=== PATIENT | male | born 1970 ===

== ENCOUNTER 2024-06-15 19:37 | Inpatient (IN) | payer OTHER, SELFPAY ==
--- NOTE | 2024-06-15 19:51 | ED.PSYCH ---
HPI - Psych General Chief Complaint: Psychiatric Symptoms Stated Complaint: Crisis Time Seen by Provider: 06/15/24 20:08 Source: patient Limitations: no limitations History of Present Illness HPI Narrative: 54-year-old male who has a history of anxiety, depression, polysubstance use, presents for evaluation of suicidal ideation. Patient states that he is currently homeless, recently lost the car that he was sleeping in, and is feeling increasing the depressed. Patient states ?I just want to end it all, Stefania lived 54 years, I think I have lived long enough?. He denies any specific plan. He denies any homicidal ideation. No auditory or visual hallucinations. Patient smokes tobacco, drinks occasional alcohol use in admits to a small amount earlier today. He also admits to cocaine use. He denies any other illicit drug abuse. He is currently on Suboxone which he takes regularly. He has no physical complaints at this time. He did report that due to the combination of increased stress he felt heaviness on his chest. He denies any chest pain at this time. Related Data Home Medications ?Medication ?Instructions ?Recorded ?Confirmed acamprosate 333 mg tablet,delayed 333 mg PO TID 06/15/24 06/15/24 release buprenorphine 12 mg-naloxone 3 mg 1 film buccal Q24H 06/15/24 06/15/24 sublingual film (Suboxone) clonazepam 1 mg tablet 1 mg PO TID PRN Anxiety 06/15/24 06/15/24 escitalopram oxalate 5 mg tablet 5 mg PO DAILY 06/15/24 06/15/24 hydroxyzine HCl 50 mg tablet 50 mg PO BEDTIME PRN Insomnia 06/15/24 06/15/24 tamsulosin 0.4 mg capsule 0.4 mg PO DAILY 06/15/24 06/15/24 Allergies Allergy/AdvReac Type Severity Reaction Status Date / Time No Known Allergies Allergy Verified 06/15/24 19:57 Review of Systems Constitutional: Constitutional: Denies chills and Denies fever(s) Cardiovascular: Cardiovascular: Denies chest pain (resolved), Denies palpitations, Denies dyspnea, Denies dyspnea on exertion and Denies orthopnea Respiratory: Respiratory: Denies cough, Denies dyspnea and Denies dyspnea on exertion Gastrointestinal: Gastrointestinal: Denies abdominal pain, Denies melena, Denies hematochezia, Denies diarrhea, Denies nausea and Denies vomiting Neurologic: Denies focal weakness Endocrine: Endocrine: Denies palpitations [facility] Past Medical History Attestation statement: The following information was validated with the patient. [facility] Narrative: Depression Polysubstance use Anxiety Social History Social History Smoked in Last 30 Days: No Use of substances other than those prescribed or required for medical reasons: Yes Substance Use Type: Crack/Cocaine and Other Substance Use Type Other:: benzos Substance Use Frequency: Chronic Longstanding Advance Directives: No Advance Directives Information Provided: No Do you have a plan to hurt others: No Plan Physical Exam Vital Signs: Vital Signs: Last Vital Signs Temp 98.2 F 06/16/24 06:27 Pulse 50 06/16/24 06:27 Resp 16 06/15/24 19:54 BP 94/56 L 06/16/24 06:27 Pulse Ox 97 06/16/24 06:27 O2 Del Method Room Air 06/16/24 06:27 BMI result Body Mass Index 27.1 Const: General: no acute distress, alert and awake Resp: Auscultation: clear to auscultation bilaterally Cardio: Rate: regular rate Rhythm: regular rhythm Psych: Attitude: cooperative Thought content: Suicidality present and no homicidality Course Course Course Narrative: This is a Rapid Medical Exam performed in triage by Amanda Coyle PA-C. Full HPI, ROS and PE to be performed by primary ED provider. 54-year-old male presenting to the ED c/o Im scared Im going to hurt myself Denies plan. denies HI. Admits to using ETOH last drink this morning, drinks 1/2 pint daily, +hx ETOH withdrawal. Also uses cocaine, 1gm daily, last used this AM. reports CP at present, started this AM. PE: nontoxic appearing, ambulating w/steady gait Plan: EKG, Labs, Tox, CARE Reevaluation(s) Reevaluation #1: June 15, 2024, 9:35 p.m. patient seen and evaluated by the care team. He will be placed on a section 12 and bed search initiated. Patient remains on direct observation. Signed out in stable condition. Reevaluation #2: DR. Rizzo's progress note: No events reported by nursing overnight, VSS no symptoms overnight, care team input is appreciated, patient is under section 12, bed search is underway, continue with physician observation. Time: 07:18 Medical Decision Making Medical Decision Making [facility] Narrative: 54-year-old male with history of depression, anxiety and polysubstance use, presents for evaluation of suicidal ideation. Patient will be evaluated by the behavioral health team. He did allude to chest pain earlier which has since resolved. EKG is unremarkable. Labs pending. Patient remains on direct observation Differential Diagnosis Differential Diagnoses: The differential diagnosis associated with the presentation includes Depression PTSD Psychosis Anxiety Polysubstance use Lab Data [facility] Lab Attestation statement: I reviewed the patient's lab results. 06/15/24 20:09 06/15/24 20:09 Labs: Lab Results 06/15/24 06/15/24 Range/Units 20:09 20:39 WBC 10.3 (4.8-10.8) X10*3/uL RBC 4.46 L (4.60-5.80) X10*6/uL Hgb 14.6 (14.0-18.0) g/dl Hct 41.8 L (42.0-52.0) % MCV 93.7 (80.0-98.0) fL MCH 32.7 (27.0-33.0) pg MCHC 34.9 (31.0-36.0) g/dl RDW 13.4 (11.0-16.0) % Plt Count 240 (160-400) X10*3/uL MPV 9.6 (9.4-12.4) fL Immature Gran % (Auto) 0.3 (0.0-0.4) % Neut % (Auto) 54.0 (45-73) % Lymph % (Auto) 34.1 (20-40) % [place] % (Auto) 7.5 (2-11) % Eos % (Auto) 3.5 (0-4) % Baso % (Auto) 0.6 (0-2) % Lymph # (Auto) 3.5 (1.2-4.9) X10*3/uL [place] # (Auto) 0.8 (0.1-1.2) X10*3/uL Eos # (Auto) 0.4 (0.0-0.4) X10*3/uL Baso # (Auto) 0.1 (0.0-0.2) X10*3/uL Abs Immat Gran (auto) 0.03 (0.00-0.03) X10*3/uL Absolute Neuts (auto) 5.6 (2.0-8.3) x10*3/uL Absolute Nucleated RBC 0.000 (0.0-0.012) X10*3/uL Nucleated RBC % (auto) 0.0 (0.0-0.2) /100WBC Sodium 141 (135-145) mmol/L Potassium 4.6 (3.3-5.1) mmol/L Chloride 104 (96-108) mmol/L Carbon Dioxide 30 H (22-29) mmol/L Anion Gap 12 (12-20) BUN 24 H (9-16) mg/dL Creatinine 1.07 (0.5-1.4) mg/dL Estim Creat Clear Calc 78.9 Estimated GFR > 60 Random Glucose 117 H (60-115) mg/dL Calcium 9.1 (8.4-10.2) mg/dL Total Bilirubin 0.7 (0.0-1.0) mg/dL Direct Bilirubin 0.3 (0.0-0.5) mg/dL AST 41 H (5-37) U/L ALT 35 (0-40) U/L Alkaline Phosphatase 93 (39-117) U/L Troponin I High Sens < 2.7 (<3.5-35.0) ng/L Total Protein 8.9 H (6.5-8.0) g/dL Albumin 3.9 (3.5-5.0) g/dL Urine Color Dark Yellow Urine Appearance Clear Urine pH 6.0 (5.0-9.0) Ur Specific [place] >= 1.030 H (1.005-1.025) Urine Protein 30 (1+) H (Neg-Trace) mg/dL Urine Glucose (UA) Negative (Negative) mg/dL Urine Ketones Trace (Negative) mg/dL Urine Blood Negative (Negative) Urine Nitrite Negative (Negative) Ur Leukocyte Esterase Negative (Negative) Urine RBC 0-2 (0-2) /HPF Urine WBC 0-5 (0-5) /HPF Ur Squamous Epith Cells 0-2 (0-2) /HPF Urine Bacteria None Seen (None Seen) Hyaline Casts 0-2 (0-2) /LPF Salicylates < 5.0 L (15-30) mg/dL Urine Opiates Screen Not Detected (Not Detect) Ur Buprenorphine Scrn Positive H (Not Detect) ng/mL Ur Oxycodone Screen Not Detected (Not Detect) ng/mL Urine Methadone Screen Not Detected (Not Detect) ng/mL Urine Fentanyl Screen Not Detected (Not Detect) Acetaminophen < 3 (<30) mcg/mL Ur Barbiturates Screen Not Detected (Not Detect) Ur Phencyclidine Scrn Not Detected (Not Detect) Ur Amphetamines Screen Not Detected (Not Detect) U Benzodiazepines Scrn POSITIVE H (Not Detect) Urine Cocaine Screen POSITIVE H (Not Detect) U Marijuana (THC) Screen Not Detected (Not Detect) Ethyl Alcohol < 10 mg/dL Independent Interpretation I performed an independent interpretation of an: EKG (Sinus bradycardia 51 beats per minute without any acute ischemic changes.) Social Determinants Patient?s care significantly limited by Social Determinants of Health including: Inadequate housing, Low income, Alcoholism and drug addiction in family, Problems related to primary support group, Unemployment and Other Social Determinant of Health Discharge Plan Discharge Clinical Impression: Depression Patient Disposition: Still a Patient Prescriptions: No Action tamsulosin 0.4 mg Capsule 0.4 mg PO DAILY buprenorphine-naloxone [Suboxone] 12-3 mg Film 1 film BUCCAL Q24H clonazepam 1 mg Tablet 1 mg PO TID PRN (Reason: Anxiety) escitalopram oxalate 5 mg Tablet 5 mg PO DAILY hydroxyzine HCl 50 mg Tablet 50 mg PO BEDTIME PRN (Reason: Insomnia) acamprosate 333 mg Tablet,Delayed Release (Dr/Ec) 333 mg PO TID Rx Instructions: administer with mid-day and evening meals Interventions: [place]-Suicide Risk Severity Scale Last Done: 06/16/24 04:38 Print Language: Mosotho
[2024-06-15 19:54] VITALS: BP 132/77; PULSE 60; RESP 16; TEMP 36.5; O2SAT 98; BMI 27.1
--- NOTE | 2024-06-15 19:56 | ECG_ITS ---
Test Reason : CHEST PAIN Blood Pressure : / mmHG Vent. Rate : 051 BPM Atrial Rate : 051 BPM P-R Int : 144 ms QRS Dur : 086 ms QT Int : 434 ms P-R-T Axes : -78 -34 010 degrees QTc Int : 400 ms Unusual P axis, possible ectopic atrial bradycardia Left axis deviation Abnormal ECG No previous ECGs available Referred By: Amanda Coyle Electronically Signed By:MARIANNA BOLANOS
[2024-06-15 20:14] LABS: MANUAL DIFF FLAG NO
[2024-06-15 20:15] LABS: Basophils Absolute Auto 0.1 X10*3/uL (0.0-0.2); Basophils Percent Auto 0.6 % (0-2); Eosinophils Absolute Auto 0.4 X10*3/uL (0.0-0.4); Eosinophils Percent Auto 3.5 % (0-4); Hematocrit 41.8 % (42.0-52.0); Hemoglobin 14.6 g/dl (14.0-18.0); Imm Gran Abs Auto 0.03 X10*3/uL (0.00-0.03); Imm Gran Pct Auto 0.3 % (0.0-0.4); Lymphocytes Absolute Auto 3.5 X10*3/uL (1.2-4.9); Lymphocytes Percent Auto 34.1 % (20-40); Mean Corpuscular HGB Conc 34.9 g/dl (31.0-36.0); Mean Corpuscular Hemoglobin 32.7 pg (27.0-33.0); Mean Corpuscular Volume 93.7 fL (80.0-98.0); Mean Platelet Volume 9.6 fL (9.4-12.4); Monocytes Absolute Auto 0.8 X10*3/uL (0.1-1.2); Monocytes Percent Auto 7.5 % (2-11); Neutrophils Absolute Auto 5.6 x10*3/uL (2.0-8.3); Platelet Count 240 X10*3/uL (160-400); Red Blood Count 4.46 X10*6/uL (4.60-5.80); Red Cell Distribution Width 13.4 % (11.0-16.0); White Blood Count 10.3 X10*3/uL (4.8-10.8)
[2024-06-15 20:30] LABS: Alanine Aminotransferase 35 U/L (0-40); Albumin Level 3.9 g/dL (3.5-5.0); Alkaline Phosphatase 93 U/L (39-117); Anion Gap 12 (12-20); Aspartate Amino Transferase 41 U/L (5-37); Bilirubin Direct 0.3 mg/dL (0.0-0.5); Bilirubin Total 0.7 mg/dL (0.0-1.0); Blood Urea Nitrogen 24 mg/dL (9-16); Calcium 9.1 mg/dL (8.4-10.2); Carbon Dioxide 30 mmol/L (22-29); Chloride 104 mmol/L (96-108); Creatinine Clr Calc Pharmacy 78.9; Estimated Glomerular Filt Rate > 60; Ethanol < 10 mg/dL; Glucose Random 117 mg/dL (60-115); Potassium 4.6 mmol/L (3.3-5.1); Sodium 141 mmol/L (135-145); Total Protein 8.9 g/dL (6.5-8.0)
[2024-06-15 20:33] LABS: Acetaminophen LAB < 3 mcg/mL (<30); Salicylate < 5.0 mg/dL (15-30)
[2024-06-15 20:49] LABS: Appearance Urine Clear; Color Urine Dark Yellow; Glucose Urine UA Negative (Negative); Leukocyte Esterase Urine Negative (Negative); Nitrite Urine Negative (Negative); Specific Gravity - Urine >= 1.030 (1.005-1.025); UMIC TRIGGER UA YES; Urine Blood Negative (Negative); Urine Ketones Trace mg/dL (Negative); Urine Protein 30 (1+) mg/dL (Neg-Trace)
[2024-06-15 20:51] LABS: Bacteria Urine None Seen (None Seen); Hyaline Casts Urine 0-2 /LPF (0-2); RBC Urine 0-2 /HPF (0-2); Squamous Epithelial Cell Urine 0-2 /HPF (0-2); WBC Urine 0-5 /HPF (0-5)
[2024-06-15 21:00] LABS: Amphetamine Screen Urine Not Detected (Not Detect); Barbiturates, Urine Not Detected (Not Detect); Benzodiazepines Screen Urine POSITIVE (Not Detect); Buprenorphine Scr Positive (Not Detect); Cannabinoid Screen Urine Not Detected (Not Detect); Cocaine Screen Urine POSITIVE (Not Detect); Fentanyl, urine Not Detected (Not Detect); Methadone Screen, Urine Not Detected (Not Detect); Opiate Screen Urine Not Detected (Not Detect); Oxycodone Screen Urine Not Detected (Not Detect); Phencyclidine Screen Urine Not Detected (Not Detect)
[2024-06-15 21:03] LABS: Troponin-I High Sensitivity < 2.7 ng/L (<3.5-35.0)
--- NOTE | 2024-06-16 04:42 | PC.NURSE ---
Patient slept through the night, no distress observed/reported, med rec completed/pending provider's approval, disposition per care team is section 12 inpatient bed search, no behavior and safety issues, safety check maintained on 15 minutes, VSS, will continue to monitor
[2024-06-16 06:27] VITALS: BP 94/56; PULSE 50; TEMP 36.8; O2SAT 97
--- NOTE | 2024-06-16 06:48 | PC.NURSE ---
Assumed care of patient at 0645, patient appears to be in no apparent distress this am, sitting up in chair eating breakfast, offers no complaints to this RN. Continue plan of care for inpatient bedsearch
[2024-06-16 12:05] VITALS: BP 109/58; PULSE 83; RESP 18; TEMP 36.4; O2SAT 96
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
[2024-06-16 12:42] VITALS: BMI 25.6
[2024-06-16] MEDS: Acamprosate Calcium 333 MG TABLET.DR PO ×2 (13:41→22:22)
[2024-06-16] MEDS: Tamsulosin HCL 0.4 MG CAPSULE PO (13:41)
[2024-06-16] MEDS: Buprenorphine/Naloxone 8/2 mg FILM 1 FILM BUCCAL ×2 (13:41→22:22)
[2024-06-16] MEDS: clonazePAM 0.5 MG TABLET PO (13:41)
[2024-06-16] MEDS: Baclofen 10 MG TABLET PO (13:41)
[2024-06-16] MEDS: Nicotine Polacrilex 2 MG GUM 4 MG BUCCAL ×2 (14:04→20:48)
[2024-06-16] MEDS: Escitalopram Oxalate 10 MG TABLET PO (14:04)
[2024-06-16] MEDS: Nicotine 21 MG PATCH.TD24 TRANSDERMA (15:24)
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
[2024-06-16 20:00] VITALS: BP 112/65; PULSE 60; RESP 16; TEMP 36.9; O2SAT 95
[2024-06-16] MEDS: clonazePAM 1 MG TABLET PO (22:22)
[2024-06-16] MEDS: Acetaminophen 325 MG TABLET 650 MG PO (22:22)
[2024-06-17 08:00] VITALS: BP 99/58; PULSE 55; RESP 18; TEMP 36.9; O2SAT 96
--- NOTE | 2024-06-17 08:50 | P.PNPSI_ITS ---
Subjective Subjective Date of Service: 06/17/24 Reason For Visit: Crisis Subjective Notes: Conditional Voluntary Interim History: Reviewed with Dr. Roberson. Active on unit, social with peers. attending groups. Pt reports feeling better than yesterday ; continues to report anxiety and depression. Pt stated, I'm not feeling hopeless today ; pt denies SI/HI/VH/AH. He reports some nightmares but improved from days prior. Medication Compliance: Yes Side effects from medications: No Attending Groups: Yes Review of Systems Constitutional: Reports as per HPI Eyes: Reports as per HPI Reports as per HPI Cardiovascular: Reports as per HPI Respiratory: Reports as per HPI Gastrointestinal: Reports as per HPI Genitourinary: Reports as per HPI Musculoskeletal: Reports as per HPI Skin/Breast: Reports as per HPI Reports as per HPI Psychiatric: Reports as per HPI Endocrine: Reports as per HPI Hematologic/Lymphatic: Reports as per HPI Allergic/Immunologic: Reports as per HPI Mental Status Exam Mental Status Exam Narrative: Pt is alert and oriented; behavior is cooperative and calm; dressed in casual attire; mood is described as depressed and anxious ; eye contact appropriate; Speech is normal rate, volume and not pressured; thought process is organized and goal directed; Thought content is on tx; denies SI/HI/VH/AH. Diagnostics Vital Signs (24Hr): Vital Signs - 24 hr 06/16/24 12:05 06/16/24 20:00 06/17/24 08:00 Temperature 97.6 F 98.4 F 98.4 F Pulse Rate 83 60 55 Respiratory Rate 18 16 18 Blood Pressure 109/58 L 112/65 99/58 L Pulse Oximetry 96 95 96 Oxygen Delivery Method Room Air Room Air Room Air BMI result Body Mass Index 25.6 Labs 06/15/24 20:09 06/17/24 08:21 Labs: Laboratory Results - last 48 hr 06/15/24 06/15/24 20:09 20:39 WBC 10.3 RBC 4.46 L Hgb 14.6 Hct 41.8 L MCV 93.7 MCH 32.7 MCHC 34.9 RDW 13.4 Plt Count 240 MPV 9.6 Immature Gran % (Auto) 0.3 Neut % (Auto) 54.0 Lymph % (Auto) 34.1 [place] % (Auto) 7.5 Eos % (Auto) 3.5 Baso % (Auto) 0.6 Lymph # (Auto) 3.5 [place] # (Auto) 0.8 Eos # (Auto) 0.4 Baso # (Auto) 0.1 Abs Immat Gran (auto) 0.03 Absolute Neuts (auto) 5.6 Absolute Nucleated RBC 0.000 Nucleated RBC % (auto) 0.0 Sodium 141 Potassium 4.6 Chloride 104 Carbon Dioxide 30 H Anion Gap 12 BUN 24 H Creatinine 1.07 Estim Creat Clear Calc 78.9 Estimated GFR > 60 Random Glucose 117 H Calcium 9.1 Total Bilirubin 0.7 Direct Bilirubin 0.3 AST 41 H ALT 35 Alkaline Phosphatase 93 Troponin I High Sens < 2.7 Total Protein 8.9 H Albumin 3.9 Urine Color Dark Yellow Urine Appearance Clear Urine pH 6.0 Ur Specific [place] >= 1.030 H Urine Protein 30 (1+) H Urine Glucose (UA) Negative Urine Ketones Trace Urine Blood Negative Urine Nitrite Negative Ur Leukocyte Esterase Negative Urine RBC 0-2 Urine WBC 0-5 Ur Squamous Epith Cells 0-2 Urine Bacteria None Seen Hyaline Casts 0-2 Salicylates < 5.0 L Urine Opiates Screen Not Detected Ur Buprenorphine Scrn Positive H Ur Oxycodone Screen Not Detected Urine Methadone Screen Not Detected Urine Fentanyl Screen Not Detected Acetaminophen < 3 Ur Barbiturates Screen Not Detected Ur Phencyclidine Scrn Not Detected Ur Amphetamines Screen Not Detected U Benzodiazepines Scrn POSITIVE H Urine Cocaine Screen POSITIVE H U Marijuana (THC) Screen Not Detected Ethyl Alcohol < 10 Medications Medications Current Medications Acamprosate (Acamprosate Calcium 333 Mg Tablet.Dr) 333 mg PO TID [facility] Last Admin: 06/16/24 22:22 Dose: 333 mg Acetaminophen (Acetaminophen 325 Mg Tablet) 650 mg PO Q6H PRN PRN Reason: Headache/Pain Mild Scale (1-3) Last Admin: 06/16/24 22:22 Dose: 650 mg Al Hydroxide/Mg Hydroxide (Magnesium Hydrox/Alum Hydrox 30 Ml Oral.Susp) 30 ml PO Q6H PRN PRN Reason: Heartburn/Nausea Buprenorphine/Naloxone (Buprenorphine/Naloxone 8/2 Mg Film) 1 film BUCCAL TID [facility] Last Admin: 06/16/24 22:22 Dose: 1 film Clonazepam (Clonazepam 0.5 Mg Tablet) 0.5 mg PO BID@0800,1500 [facility] Last Admin: 06/16/24 13:41 Dose: 0.5 mg Clonazepam (Clonazepam 1 Mg Tablet) 1 mg PO BEDTIME [facility] Last Admin: 06/16/24 22:22 Dose: 1 mg Clonidine HCl (Clonidine Hcl 0.1 Mg Tablet) 0.1 mg PO TID PRN; Protocol PRN Reason: Anxiety Escitalopram Oxalate (Escitalopram Oxalate 10 Mg Tablet) 10 mg PO DAILY [facility] Last Admin: 06/16/24 14:04 Dose: 10 mg Hydroxyzine HCl (Hydroxyzine Hcl 25 Mg Tablet) 25 mg PO Q6H PRN PRN Reason: Anxiety Magnesium Hydroxide (Milk Of Magnesia 30 Ml Oral.Susp) 30 ml PO DAILY PRN PRN Reason: Constipation Nicotine (Nicotine 21 Mg Patch.Td24) 21 mg TRANSDERMA DAILY [facility] Nicotine Polacrilex (Nicotine Polacrilex 2 Mg Gum) 4 mg BUCCAL Q2H PRN PRN Reason: Nicotine Cravings Last Admin: 06/16/24 20:48 Dose: 4 mg Tamsulosin HCl (Tamsulosin Hcl 0.4 Mg Capsule) 0.4 mg PO DAILY [facility] Trazodone HCl (Trazodone Hcl 50 Mg Tablet) 50 mg PO BEDTIME MRX1 PRN PRN Reason: Insomnia Allergies Allergies Allergy/AdvReac Type Severity Reaction Status Date / Time No Known Allergies Allergy Verified 06/15/24 19:57 Assessment & Plan Assessment & Plan (1) MDD (major depressive disorder), recurrent episode: Status: Acute Code(s): F33.9 - Major depressive disorder, recurrent, unspecified (2) PTSD (post-traumatic stress disorder): Status: Acute Code(s): F43.10 - Post-traumatic stress disorder, unspecified (3) Cocaine use disorder: Status: Acute Code(s): F14.10 - Cocaine abuse, uncomplicated (4) Opioid use disorder: Status: Acute Code(s): F11.90 - Opioid use, unspecified, uncomplicated Plan Patient is a 54-year-old male with history of MDD, PTSD, cocaine use disorder, opiate use disorder, who self presented [place] [facility] due to suicidal ideation with plan to overdose on narcotics secondary to life stressors. Plan: CV 15 minute safety checks Increase lexapro to 10mg PO daily Decrease klonopin to 0.5mg PO BID and 1mg PO bedtime Start: Clonidine 0.1mg PO TID PRN referral to outpatient psychiatric providers encourage groups referral to substance abuse program discharge planning 06/17: Active on unit, social with peers. attending groups. Pt reports feeling better than yesterday ; continues to report anxiety and depression. Pt stated, I'm not feeling hopeless today ; pt denies SI/HI/VH/AH. He reports some nightmares but improved from days prior. Continue current tx plan. Patient educated on: diagnosis, medication risk/benefits and therapeutic strategies Informed Consent: understands Reason for continued inpatient stay Substantial Risk for: med/psych decompensation Time Spent With Patient Time: Total time managing care of this patient today _20___ minutes.
[2024-06-17 08:51] LABS: Alanine Aminotransferase 26 U/L (0-40); Albumin Level 3.2 g/dL (3.5-5.0); Alkaline Phosphatase 78 U/L (39-117); Anion Gap 10 (12-20); Aspartate Amino Transferase 32 U/L (5-37); Bilirubin Total 0.2 mg/dL (0.0-1.0); Blood Urea Nitrogen 16 mg/dL (9-16); Calcium 8.9 mg/dL (8.4-10.2); Carbon Dioxide 28 mmol/L (22-29); Chloride 107 mmol/L (96-108); Cholesterol 134 mg/dL (<200); Creatinine Clr Calc Pharmacy 92.7; Estimated Glomerular Filt Rate > 60; Glucose Fasting 111 mg/dL (60-99); HDL Cholesterol 37 mg/dL (>40); LDL Cholesterol Calculated 79 mg/dL (<100); Potassium 4.6 mmol/L (3.3-5.1); Sodium 140 mmol/L (135-145); Total Protein 7.3 g/dL (6.5-8.0); Triglycerides 90 mg/dL (<150)
[2024-06-17] MEDS: Acamprosate Calcium 333 MG TABLET.DR PO ×3 (08:52→21:22)
[2024-06-17] MEDS: Escitalopram Oxalate 10 MG TABLET PO (08:52)
[2024-06-17] MEDS: Buprenorphine/Naloxone 8/2 mg FILM 1 FILM BUCCAL ×3 (08:52→21:22)
[2024-06-17] MEDS: Nicotine 21 MG PATCH.TD24 TRANSDERMA (08:52)
[2024-06-17] MEDS: clonazePAM 0.5 MG TABLET PO ×2 (08:52→14:07)
[2024-06-17] MEDS: Tamsulosin HCL 0.4 MG CAPSULE PO (08:52)
[2024-06-17] MEDS: Acetaminophen 325 MG TABLET 650 MG PO ×2 (09:52→21:22)
[2024-06-17] MEDS: Nicotine Polacrilex 2 MG GUM 4 MG BUCCAL ×2 (09:58→18:10)
[2024-06-17 20:00] VITALS: BP 119/72; PULSE 64; RESP 16; TEMP 36.4; O2SAT 98
[2024-06-17] MEDS: clonazePAM 1 MG TABLET PO (21:22)
[2024-06-18 07:55] VITALS: BP 105/58; PULSE 51; RESP 16; TEMP 36.4; O2SAT 97
[2024-06-18] MEDS: Nicotine 21 MG PATCH.TD24 TRANSDERMA (09:05)
[2024-06-18] MEDS: Buprenorphine/Naloxone 8/2 mg FILM 1 FILM BUCCAL ×3 (09:05→20:34)
[2024-06-18] MEDS: Tamsulosin HCL 0.4 MG CAPSULE PO (09:05)
[2024-06-18] MEDS: clonazePAM 0.5 MG TABLET PO ×2 (09:05→15:38)
[2024-06-18] MEDS: Acamprosate Calcium 333 MG TABLET.DR PO ×3 (09:05→20:34)
[2024-06-18] MEDS: Escitalopram Oxalate 10 MG TABLET PO (09:05)
[2024-06-18] MEDS: Acetaminophen 325 MG TABLET 650 MG PO (09:42)
[2024-06-18] MEDS: Nicotine Polacrilex 2 MG GUM 4 MG BUCCAL ×2 (09:55→13:54)
--- NOTE | 2024-06-18 15:07 | HO.PSYCHPN ---
Subjective Subjective Date of Service: 06/18/24 Reason For Visit: Crisis Subjective Notes: Conditional Voluntary Interim History: Reviewed with Dr. Roberson. Pt reports feeling anxious d/t being away from his girlfriend. Pt stated, I'm grateful that I'm here because the life I'm living make me depressed . Pt is hoping he is accepted into the [facility]. denies SI/HI/VH/AH. Medication Compliance: Yes Side effects from medications: No Attending Groups: Yes Review of Systems Constitutional: Reports as per HPI Eyes: Reports as per HPI Reports as per HPI Cardiovascular: Reports as per HPI Respiratory: Reports as per HPI Gastrointestinal: Reports as per HPI Genitourinary: Reports as per HPI Musculoskeletal: Reports as per HPI Skin/Breast: Reports as per HPI Reports as per HPI Psychiatric: Reports as per HPI Endocrine: Reports as per HPI Hematologic/Lymphatic: Reports as per HPI Allergic/Immunologic: Reports as per HPI Mental Status Exam Mental Status Exam Narrative: Pt is alert and oriented; behavior is cooperative and calm; dressed in casual attire; mood is described as depressed and anxious ; eye contact appropriate; Speech is normal rate, volume and not pressured; thought process is organized and goal directed; Thought content is on tx; denies SI/HI/VH/AH. Diagnostics Vital Signs (24Hr): Vital Signs - 24 hr 06/17/24 20:00 06/18/24 07:55 Temperature 97.6 F 97.5 F Pulse Rate 64 51 Respiratory Rate 16 16 Blood Pressure 119/72 105/58 L Pulse Oximetry 98 97 Oxygen Delivery Method Room Air Room Air BMI result Body Mass Index 25.6 Labs 06/15/24 20:09 06/17/24 08:21 Labs: Laboratory Results - last 48 hr 06/17/24 08:21 Sodium 140 Potassium 4.6 Chloride 107 Carbon Dioxide 28 Anion Gap 10 L BUN 16 Creatinine 0.91 Estim Creat Clear Calc 92.7 Estimated GFR > 60 Fasting Glucose 111 H Calcium 8.9 Total Bilirubin 0.2 AST 32 ALT 26 Alkaline Phosphatase 78 Total Protein 7.3 Albumin 3.2 L Triglycerides 90 Cholesterol 134 LDL Cholesterol, Calc 79 HDL Cholesterol 37 L Medications Medications Current Medications Acamprosate (Acamprosate Calcium 333 Mg Tablet.) 333 mg PO TID [facility] Last Admin: 06/18/24 09:05 Dose: 333 mg Acetaminophen (Acetaminophen 325 Mg Tablet) 650 mg PO Q6H PRN PRN Reason: Headache/Pain Mild Scale (1-3) Last Admin: 06/18/24 09:42 Dose: 650 mg Al Hydroxide/Mg Hydroxide (Magnesium Hydrox/Alum Hydrox 30 Ml Oral.Susp) 30 ml PO Q6H PRN PRN Reason: Heartburn/Nausea Buprenorphine/Naloxone (Buprenorphine/Naloxone 8/2 Mg Film) 1 film BUCCAL TID [facility] Last Admin: 06/18/24 09:05 Dose: 1 film Clonazepam (Clonazepam 0.5 Mg Tablet) 0.5 mg PO BID@0800,1500 [facility] Last Admin: 06/18/24 09:05 Dose: 0.5 mg Clonazepam (Clonazepam 1 Mg Tablet) 1 mg PO BEDTIME [facility] Last Admin: 06/17/24 21:22 Dose: 1 mg Clonidine HCl (Clonidine Hcl 0.1 Mg Tablet) 0.1 mg PO TID PRN; Protocol PRN Reason: Anxiety Escitalopram Oxalate (Escitalopram Oxalate 10 Mg Tablet) 10 mg PO DAILY [facility] Last Admin: 06/18/24 09:05 Dose: 10 mg Hydroxyzine HCl (Hydroxyzine Hcl 25 Mg Tablet) 25 mg PO Q6H PRN PRN Reason: Anxiety Magnesium Hydroxide (Milk Of Magnesia 30 Ml Oral.Susp) 30 ml PO DAILY PRN PRN Reason: Constipation Nicotine (Nicotine 21 Mg Patch.Td24) 21 mg TRANSDERMA DAILY [facility] Last Admin: 06/18/24 09:05 Dose: 21 mg Nicotine Polacrilex (Nicotine Polacrilex 2 Mg Gum) 4 mg BUCCAL Q2H PRN PRN Reason: Nicotine Cravings Last Admin: 06/18/24 13:54 Dose: 4 mg Tamsulosin HCl (Tamsulosin Hcl 0.4 Mg Capsule) 0.4 mg PO DAILY [facility] Last Admin: 06/18/24 09:05 Dose: 0.4 mg Trazodone HCl (Trazodone Hcl 50 Mg Tablet) 50 mg PO BEDTIME MRX1 PRN PRN Reason: Insomnia Allergies Allergies Allergy/AdvReac Type Severity Reaction Status Date / Time No Known Allergies Allergy Verified 06/15/24 19:57 Assessment & Plan Assessment & Plan (1) MDD (major depressive disorder), recurrent episode: Status: Acute Code(s): F33.9 - Major depressive disorder, recurrent, unspecified (2) PTSD (post-traumatic stress disorder): Status: Acute Code(s): F43.10 - Post-traumatic stress disorder, unspecified (3) Cocaine use disorder: Status: Acute Code(s): F14.10 - Cocaine abuse, uncomplicated (4) Opioid use disorder: Status: Acute Code(s): F11.90 - Opioid use, unspecified, uncomplicated Plan Patient is a 54-year-old male with history of MDD, PTSD, cocaine use disorder, opiate use disorder, who self presented to [facility] due to suicidal ideation with plan to overdose on narcotics secondary to life stressors. Plan: CV 15 minute safety checks Increase lexapro to 10mg PO daily Decrease klonopin to 0.5mg PO BID and 1mg PO bedtime Start: Clonidine 0.1mg PO TID PRN referral to outpatient psychiatric providers encourage groups referral to substance abuse program discharge planning 06/17: Active on unit, social with peers. attending groups. Pt reports feeling better than yesterday ; continues to report anxiety and depression. Pt stated, I'm not feeling hopeless today ; pt denies SI/HI/VH/AH. He reports some nightmares but improved from days prior. Continue current tx plan. 06/18: Pt reports feeling anxious d/t being away from his girlfriend. Pt stated, I'm grateful that I'm here because the life I'm living make me depressed . Pt is hoping he is accepted into the [facility]. denies SI/HI/VH/AH. Continue current tx plan. Patient educated on: diagnosis, medication risk/benefits, substance abuse and therapeutic strategies Informed Consent: understands Reason for continued inpatient stay Substantial Risk for: med/psych decompensation Time Spent With Patient Time: Total time managing care of this patient today _20___ minutes.
[2024-06-18 19:40] VITALS: BP 113/71; PULSE 56; RESP 16; TEMP 36.6; O2SAT 98
[2024-06-18] MEDS: clonazePAM 1 MG TABLET PO (20:34)
[2024-06-18] MEDS: traZODone HCL 50 MG TABLET PO (20:58)
[2024-06-19 07:00] VITALS: BMI 27.8
[2024-06-19 07:44] VITALS: BP 98/56; PULSE 51; RESP 14; TEMP 36.8; O2SAT 95
[2024-06-19] MEDS: Nicotine 21 MG PATCH.TD24 TRANSDERMA (08:56)
[2024-06-19] MEDS: Buprenorphine/Naloxone 8/2 mg FILM 1 FILM BUCCAL ×3 (08:56→20:46)
[2024-06-19] MEDS: Escitalopram Oxalate 10 MG TABLET PO (08:57)
[2024-06-19] MEDS: Tamsulosin HCL 0.4 MG CAPSULE PO (08:57)
[2024-06-19] MEDS: Acamprosate Calcium 333 MG TABLET.DR PO ×3 (08:57→20:47)
[2024-06-19] MEDS: clonazePAM 0.5 MG TABLET PO (08:57)
[2024-06-19] MEDS: Nicotine Polacrilex 2 MG GUM 4 MG BUCCAL ×2 (09:00→14:32)
--- NOTE | 2024-06-19 10:35 | MHC.RECOVRN ---
AUDIT-C Brief Intervention Pt had positive screen for unhealthy alcohol use on admission, subsequently met with t/w to discuss alcohol use and recovery supports/options. Pt voices concern regarding alcohol use and is aware that drinking at unhealthy levels is known to increase risk of alcohol related health problems. Pt reports a A pint and a half of vodka and beer daily . Pt expresses how alcohol use has impacted health, including negative impact on work and family life. Discussed risk reduction strategies including drinking below the recommended limit. Provided pt with written resources including information on inpatient and outpatient treatment, BACILIO, harm reduction, and recovery coaching. Pt plans to return to the [facility] upon discharge. Pt provided with t/w contact information if questions or concerns arise. Denies other questions or concerns at this time.?
--- NOTE | 2024-06-19 13:15 | HO.PSYCHPN ---
Subjective Subjective Date of Service: 06/19/24 Reason For Visit: Crisis Subjective Notes: Conditional Voluntary Interim History: Reviewed with Dr. Roberson. Pt continues to report feeling anxious and depressed; pt stated, my mind feels blank today. I don't feel like myself. I'm just worried about different things . Pt reports sleeping well last night. Klonopin decreased to 0.5mg PO daily and 1mg PO bedtime. Switched clonidine 0.1mg PO TID from PRN to scheduled. Medication Compliance: Yes Side effects from medications: No Attending Groups: Yes Review of Systems Constitutional: Reports as per HPI Eyes: Reports as per HPI Reports as per HPI Cardiovascular: Reports as per HPI Respiratory: Reports as per HPI Gastrointestinal: Reports as per HPI Genitourinary: Reports as per HPI Musculoskeletal: Reports as per HPI Skin/Breast: Reports as per HPI Reports as per HPI Psychiatric: Reports as per HPI Endocrine: Reports as per HPI Hematologic/Lymphatic: Reports as per HPI Allergic/Immunologic: Reports as per HPI Mental Status Exam Mental Status Exam Narrative: Pt is alert and oriented; behavior is cooperative and calm; dressed in casual attire; mood is described as depressed and anxious ; eye contact appropriate; Speech is normal rate, volume and not pressured; thought process is organized and goal directed; Thought content is on tx; denies SI/HI/VH/AH. Diagnostics Vital Signs (24Hr): Vital Signs - 24 hr 06/18/24 19:40 06/19/24 07:44 Temperature 97.8 F 98.3 F Pulse Rate 56 51 Respiratory Rate 16 14 Blood Pressure 113/71 98/56 L Pulse Oximetry 98 95 Oxygen Delivery Method Room Air Room Air BMI result Body Mass Index 27.8 Labs 06/15/24 20:09 06/17/24 08:21 Medications Medications Current Medications Acamprosate (Acamprosate Calcium 333 Mg Tablet.) 333 mg PO TID [facility] Last Admin: 06/19/24 08:57 Dose: 333 mg Acetaminophen (Acetaminophen 325 Mg Tablet) 650 mg PO Q6H PRN PRN Reason: Headache/Pain Mild Scale (1-3) Last Admin: 06/18/24 09:42 Dose: 650 mg Al Hydroxide/Mg Hydroxide (Magnesium Hydrox/Alum Hydrox 30 Ml Oral.Susp) 30 ml PO Q6H PRN PRN Reason: Heartburn/Nausea Buprenorphine/Naloxone (Buprenorphine/Naloxone 8/2 Mg Film) 1 film BUCCAL TID [facility] Last Admin: 06/19/24 08:56 Dose: 1 film Clonazepam (Clonazepam 0.5 Mg Tablet) 0.5 mg PO BID@0800,1500 [facility] Last Admin: 06/19/24 08:57 Dose: 0.5 mg Clonazepam (Clonazepam 1 Mg Tablet) 1 mg PO BEDTIME [facility] Last Admin: 06/18/24 20:34 Dose: 1 mg Clonidine HCl (Clonidine Hcl 0.1 Mg Tablet) 0.1 mg PO TID PRN; Protocol PRN Reason: Anxiety Escitalopram Oxalate (Escitalopram Oxalate 10 Mg Tablet) 10 mg PO DAILY [facility] Last Admin: 06/19/24 08:57 Dose: 10 mg Hydroxyzine HCl (Hydroxyzine Hcl 25 Mg Tablet) 25 mg PO Q6H PRN PRN Reason: Anxiety Magnesium Hydroxide (Milk Of Magnesia 30 Ml Oral.Susp) 30 ml PO DAILY PRN PRN Reason: Constipation Nicotine (Nicotine 21 Mg Patch.Td24) 21 mg TRANSDERMA DAILY [facility] Last Admin: 06/19/24 08:56 Dose: 21 mg Nicotine Polacrilex (Nicotine Polacrilex 2 Mg Gum) 4 mg BUCCAL Q2H PRN PRN Reason: Nicotine Cravings Last Admin: 06/19/24 09:00 Dose: 4 mg Tamsulosin HCl (Tamsulosin Hcl 0.4 Mg Capsule) 0.4 mg PO DAILY [facility] Last Admin: 06/19/24 08:57 Dose: 0.4 mg Trazodone HCl (Trazodone Hcl 50 Mg Tablet) 50 mg PO BEDTIME MRX1 PRN PRN Reason: Insomnia Last Admin: 06/18/24 20:58 Dose: 50 mg Allergies Allergies Allergy/AdvReac Type Severity Reaction Status Date / Time No Known Allergies Allergy Verified 06/15/24 19:57 Assessment & Plan Assessment & Plan (1) MDD (major depressive disorder), recurrent episode: Status: Acute Code(s): F33.9 - Major depressive disorder, recurrent, unspecified (2) PTSD (post-traumatic stress disorder): Status: Acute Code(s): F43.10 - Post-traumatic stress disorder, unspecified (3) Cocaine use disorder: Status: Acute Code(s): F14.10 - Cocaine abuse, uncomplicated (4) Opioid use disorder: Status: Acute Code(s): F11.90 - Opioid use, unspecified, uncomplicated Plan Patient is a 54-year-old male with history of MDD, PTSD, cocaine use disorder, opiate use disorder, who [place] [facility] [place] to [place] ideation with plan to overdose on narcotics secondary to life stressors. Plan: CV 15 minute safety checks Increase lexapro to 10mg PO daily Decrease klonopin to 0.5mg PO BID and 1mg PO bedtime Start: Clonidine 0.1mg PO TID PRN referral to outpatient psychiatric providers encourage groups referral to substance abuse program discharge planning 06/17: Active on unit, social with peers. attending groups. Pt reports feeling better than yesterday ; continues to report anxiety and depression. Pt stated, I'm not feeling hopeless today ; pt denies SI/HI/VH/AH. He reports some nightmares but improved from days prior. Continue current tx plan. 06/18: Pt reports feeling anxious d/t being away from his girlfriend. Pt stated, I'm grateful that I'm here because the life I'm living make me depressed . Pt is hoping he is accepted into the [facility]. denies SI/HI/VH/AH. Continue current tx plan. 06/19: Pt continues to report feeling anxious and depressed; pt stated, my mind feels blank today. I don't feel like myself. I'm just worried about different things . Pt reports sleeping well last night. Klonopin decreased to 0.5mg PO daily and 1mg PO bedtime. Switched clonidine 0.1mg PO TID from PRN to scheduled. Patient educated on: diagnosis, medication risk/benefits and therapeutic strategies Reason for continued inpatient stay Substantial Risk for: med/psych decompensation Time Spent With Patient Time: Total time managing care of this patient today _20___ minutes.
[2024-06-19 15:00] VITALS: BP 115/58
[2024-06-19] MEDS: cloNIDine HCL 0.1 MG TABLET PO ×2 (15:00→20:47)
[2024-06-19 20:05] VITALS: BP 126/71; PULSE 66; RESP 18; TEMP 36.6; O2SAT 97
[2024-06-19] MEDS: clonazePAM 1 MG TABLET PO (20:47)
[2024-06-19] MEDS: traZODone HCL 50 MG TABLET PO (20:47)
[2024-06-20 07:35] VITALS: BP 99/58; PULSE 56; RESP 18; TEMP 36.8; O2SAT 94
--- NOTE | 2024-06-20 09:03 | HO.PSYCHPN ---
Subjective Subjective Date of Service: 06/20/24 Reason For Visit: Crisis Subjective Notes: Conditional Voluntary Interim History: Reviewed with Dr. Roberson. Active on unit, social with peers, attending groups. Pt reports feeling depressed today; pt stated, I'm not feeling as anxious. It's more the depression. I know it takes a while for the medication to work . Pt reports improved sleep after taking Trazodone last evening, slept 8 hours. denies SI/HI/VH/AH. Pt is hoping he is accepted into any program for substance help . Continue with klonopin taper. Increase Lexapro to 20mg PO daily Medication Compliance: Yes Side effects from medications: No Attending Groups: Yes Review of Systems Constitutional: Reports as per HPI Eyes: Reports as per HPI Reports as per HPI Cardiovascular: Reports as per HPI Respiratory: Reports as per HPI Gastrointestinal: Reports as per HPI Genitourinary: Reports as per HPI Musculoskeletal: Reports as per HPI Skin/Breast: Reports as per HPI Reports as per HPI Psychiatric: Reports as per HPI Endocrine: Reports as per HPI Hematologic/Lymphatic: Reports as per HPI Allergic/Immunologic: Reports as per HPI Mental Status Exam Mental Status Exam Narrative: Pt is alert and oriented; behavior is cooperative and calm; dressed in casual attire; mood is described as depressed ; eye contact appropriate; Speech is normal rate, volume and not pressured; thought process is organized and goal directed; Thought content is on tx; denies SI/HI/VH/AH. Diagnostics Vital Signs (24Hr): Vital Signs - 24 hr 06/19/24 15:00 06/19/24 20:05 06/20/24 07:35 Temperature 97.8 F 98.3 F Pulse Rate 66 56 Respiratory Rate 18 18 Blood Pressure 115/58 L 126/71 99/58 L Pulse Oximetry 97 94 Oxygen Delivery Method Room Air Room Air BMI result Body Mass Index 27.8 Labs 06/15/24 20:09 06/17/24 08:21 Medications Medications Current Medications Acamprosate (Acamprosate Calcium 333 Mg Tablet.) 333 mg PO TID [facility] Last Admin: 06/19/24 20:47 Dose: 333 mg Acetaminophen (Acetaminophen 325 Mg Tablet) 650 mg PO Q6H PRN PRN Reason: Headache/Pain Mild Scale (1-3) Last Admin: 06/18/24 09:42 Dose: 650 mg Al Hydroxide/Mg Hydroxide (Magnesium Hydrox/Alum Hydrox 30 Ml Oral.Susp) 30 ml PO Q6H PRN PRN Reason: Heartburn/Nausea Buprenorphine/Naloxone (Buprenorphine/Naloxone 8/2 Mg Film) 1 film BUCCAL TID [facility] Last Admin: 06/19/24 20:46 Dose: 1 film Clonazepam (Clonazepam 1 Mg Tablet) 1 mg PO BEDTIME [facility] Last Admin: 06/19/24 20:47 Dose: 1 mg Clonazepam (Clonazepam 0.5 Mg Tablet) 0.5 mg PO DAILY [facility] Clonidine HCl (Clonidine Hcl 0.1 Mg Tablet) 0.1 mg PO TID [facility]; Protocol Last Admin: 06/19/24 20:47 Dose: 0.1 mg Escitalopram Oxalate (Escitalopram Oxalate 10 Mg Tablet) 10 mg PO DAILY [facility] Last Admin: 06/19/24 08:57 Dose: 10 mg Hydroxyzine HCl (Hydroxyzine Hcl 25 Mg Tablet) 25 mg PO Q6H PRN PRN Reason: Anxiety Magnesium Hydroxide (Milk Of Magnesia 30 Ml Oral.Susp) 30 ml PO DAILY PRN PRN Reason: Constipation Nicotine (Nicotine 21 Mg Patch.Td24) 21 mg TRANSDERMA DAILY [facility] Last Admin: 06/19/24 08:56 Dose: 21 mg Nicotine Polacrilex (Nicotine Polacrilex 2 Mg Gum) 4 mg BUCCAL Q2H PRN PRN Reason: Nicotine Cravings Last Admin: 06/19/24 14:32 Dose: 4 mg Tamsulosin HCl (Tamsulosin Hcl 0.4 Mg Capsule) 0.4 mg PO DAILY [facility] Last Admin: 06/19/24 08:57 Dose: 0.4 mg Trazodone HCl (Trazodone Hcl 50 Mg Tablet) 50 mg PO BEDTIME MRX1 PRN PRN Reason: Insomnia Last Admin: 06/19/24 20:47 Dose: 50 mg Allergies Allergies Allergy/AdvReac Type Severity Reaction Status Date / Time No Known Allergies Allergy Verified 06/15/24 19:57 Assessment & Plan Assessment & Plan (1) MDD (major depressive disorder), recurrent episode: Status: Acute Code(s): F33.9 - Major depressive disorder, recurrent, unspecified (2) PTSD (post-traumatic stress disorder): Status: Acute Code(s): F43.10 - Post-traumatic stress disorder, unspecified (3) Cocaine use disorder: Status: Acute Code(s): F14.10 - Cocaine abuse, uncomplicated (4) Opioid use disorder: Status: Acute Code(s): F11.90 - Opioid use, unspecified, uncomplicated Plan Patient is a 54-year-old male with history of MDD, PTSD, cocaine use disorder, opiate use disorder, who self presented to [facility] due to suicidal ideation with plan to overdose on narcotics secondary to life stressors. Plan: CV 15 minute safety checks Increase lexapro to 10mg PO daily Decrease klonopin to 0.5mg PO BID and 1mg PO bedtime Start: Clonidine 0.1mg PO TID PRN referral to outpatient psychiatric providers encourage groups referral to substance abuse program discharge planning 06/17: Active on unit, social with peers. attending groups. Pt reports feeling better than yesterday ; continues to report anxiety and depression. Pt stated, I'm not feeling hopeless today ; pt denies SI/HI/VH/AH. He reports some nightmares but improved from days prior. Continue current tx plan. 06/18: Pt reports feeling anxious d/t being away from his girlfriend. Pt stated, I'm grateful that I'm here because the life I'm living make me depressed . Pt is hoping he is accepted into the [facility]. denies SI/HI/VH/AH. Continue current tx plan. 06/19: Pt continues to report feeling anxious and depressed; pt stated, my mind feels blank today. I don't feel like myself. I'm just worried about different things . Pt reports sleeping well last night. Klonopin decreased to 0.5mg PO daily and 1mg PO bedtime. Switched clonidine 0.1mg PO TID from PRN to scheduled. 06/20: Active on unit, social with peers, attending groups. Pt reports feeling depressed today; pt stated, I'm not feeling as anxious. It's more the depression. I know it takes a while for the medication to work . Pt reports improved sleep after taking Trazodone last evening, slept 8 hours. denies SI/HI/VH/AH. Pt is hoping he is accepted into any program for substance help . Continue with klonopin taper. Increase Lexapro to 20mg PO daily Patient educated on: diagnosis, medication risk/benefits, substance abuse and therapeutic strategies Informed Consent: understands Reason for continued inpatient stay Substantial Risk for: med/psych decompensation Time Spent With Patient Time: Total time managing care of this patient today _20___ minutes.
[2024-06-20] MEDS: clonazePAM 0.5 MG TABLET PO (09:06)
[2024-06-20 09:07] VITALS: BP 100/60
[2024-06-20] MEDS: cloNIDine HCL 0.1 MG TABLET PO ×3 (09:07→20:58)
[2024-06-20] MEDS: Tamsulosin HCL 0.4 MG CAPSULE PO (09:07)
[2024-06-20] MEDS: Escitalopram Oxalate 10 MG TABLET PO (09:07)
[2024-06-20] MEDS: Acamprosate Calcium 333 MG TABLET.DR PO ×3 (09:07→20:58)
[2024-06-20] MEDS: Buprenorphine/Naloxone 8/2 mg FILM 1 FILM BUCCAL ×3 (09:08→20:58)
[2024-06-20] MEDS: Nicotine 21 MG PATCH.TD24 TRANSDERMA (09:09)
[2024-06-20] MEDS: Nicotine Polacrilex 2 MG GUM 4 MG BUCCAL ×2 (10:58→21:01)
[2024-06-20 15:26] VITALS: BP 112/60
[2024-06-20 20:00] VITALS: BP 108/62; PULSE 58; RESP 18; TEMP 36.7; O2SAT 96
[2024-06-20] MEDS: traZODone HCL 50 MG TABLET PO (20:58)
[2024-06-20] MEDS: clonazePAM 1 MG TABLET PO (20:58)
[2024-06-21 07:50] VITALS: BP 91/53; PULSE 54; RESP 14; TEMP 36.4; O2SAT 95
--- NOTE | 2024-06-21 08:34 | HO.PSYCHPN ---
Subjective Subjective Date of Service: 06/21/24 Reason For Visit: Crisis Subjective Notes: Conditional Voluntary Healthcare Proxy: No Guardianship: No Medical Problems Affecting Mental Status: No Interim History: 54 yo male only focused on getting his benzo reinstated at prior dose- discussed with patient referral to [facility] would require him to be on no benzos says he is going to get referral elsewhere for css- all would require this- Also asked pt who rxed his benzo as outpatient and he said his pcp - I said this should not go through pcp with etoh use he should not be on clonazepam - but he insists nothing else helps his panic do - Walked out on interview Looked up pt on [facility] for clonazepam 14 days #84 8/5 avg 6/day and on suboxone as well ! Literally admited 14 days after that fill- Medication Compliance: Yes Side effects from medications: No Attending Groups: Yes Review of Systems Acute medical concerns: No Medical Review of Systems: unchanged Review of Systems: does not appear in panic mode- angry and irritable about not getting it - Mental Status Exam Mental Status Exam Patient Appearance: Well Grooomed and Appropriate Patient Orientation: Person, Place, Time and Situation Level of Consciousness: Awake Patient Behavior: Appropriate and Resistive to Care (does not like the medical advise he is getting) Mood Description: Anxious Affect Description: Labile (just around benzo) Patient Cognition Impaired: No Ability to Follow Directions: Fair Speech Pattern: Clear Hallucinations: None Delusions: Not Present Thought Content: positive for Intact and positive for Goal Oriented Judgement: Fair Diagnostics Vital Signs (24Hr): Vital Signs - 24 hr 06/20/24 09:07 06/20/24 15:26 06/20/24 20:00 Temperature 98.1 F Pulse Rate 58 Respiratory Rate 18 Blood Pressure 100/60 112/60 108/62 Pulse Oximetry 96 Oxygen Delivery Method 06/21/24 07:50 Temperature 97.5 F Pulse Rate 54 Respiratory Rate 14 Blood Pressure 91/53 L Pulse Oximetry 95 Oxygen Delivery Method Room Air BMI result Body Mass Index 27.8 Labs 06/15/24 20:09 06/17/24 08:21 Medications Medications Current Medications Acamprosate (Acamprosate Calcium 333 Mg Tablet.) 333 mg PO TID [facility] Last Admin: 06/20/24 20:58 Dose: 333 mg Acetaminophen (Acetaminophen 325 Mg Tablet) 650 mg PO Q6H PRN PRN Reason: Headache/Pain Mild Scale (1-3) Last Admin: 06/18/24 09:42 Dose: 650 mg Al Hydroxide/Mg Hydroxide (Magnesium Hydrox/Alum Hydrox 30 Ml Oral.Susp) 30 ml PO Q6H PRN PRN Reason: Heartburn/Nausea Buprenorphine/Naloxone (Buprenorphine/Naloxone 8/2 Mg Film) 1 film BUCCAL TID [facility] Last Admin: 06/20/24 20:58 Dose: 1 film Clonazepam (Clonazepam 1 Mg Tablet) 1 mg PO BEDTIME [facility] Last Admin: 06/20/24 20:58 Dose: 1 mg Clonazepam (Clonazepam 0.5 Mg Tablet) 0.5 mg PO DAILY [facility] Last Admin: 06/20/24 09:06 Dose: 0.5 mg Clonidine HCl (Clonidine Hcl 0.1 Mg Tablet) 0.1 mg PO TID [facility]; Protocol Last Admin: 06/20/24 20:58 Dose: 0.1 mg Escitalopram Oxalate (Escitalopram Oxalate 20 Mg Tablet) 20 mg PO DAILY [facility] Hydroxyzine HCl (Hydroxyzine Hcl 25 Mg Tablet) 25 mg PO Q6H PRN PRN Reason: Anxiety Magnesium Hydroxide (Milk Of Magnesia 30 Ml Oral.Susp) 30 ml PO DAILY PRN PRN Reason: Constipation Nicotine (Nicotine 21 Mg Patch.Td24) 21 mg TRANSDERMA DAILY [facility] Last Admin: 06/20/24 09:09 Dose: 21 mg Nicotine Polacrilex (Nicotine Polacrilex 2 Mg Gum) 4 mg BUCCAL Q2H PRN PRN Reason: Nicotine Cravings Last Admin: 06/20/24 21:01 Dose: 4 mg Tamsulosin HCl (Tamsulosin Hcl 0.4 Mg Capsule) 0.4 mg PO DAILY [facility] Last Admin: 06/20/24 09:07 Dose: 0.4 mg Trazodone HCl (Trazodone Hcl 50 Mg Tablet) 50 mg PO BEDTIME MRX1 PRN PRN Reason: Insomnia Last Admin: 06/20/24 20:58 Dose: 50 mg Allergies Allergies Allergy/AdvReac Type Severity Reaction Status Date / Time No Known Allergies Allergy Verified 06/15/24 19:57 Assessment & Plan Assessment & Plan (1) MDD (major depressive disorder), recurrent episode: Status: Acute Code(s): F33.9 - Major depressive disorder, recurrent, unspecified (2) PTSD (post-traumatic stress disorder): Status: Acute Code(s): F43.10 - Post-traumatic stress disorder, unspecified (3) Cocaine use disorder: Status: Acute Code(s): F14.10 - Cocaine abuse, uncomplicated (4) Opioid use disorder: Status: Acute Code(s): F11.90 - Opioid use, unspecified, uncomplicated Plan Patient is a 54-year-old male with history of MDD, PTSD, cocaine use disorder, opiate use disorder, who self presented to [facility] due to suicidal ideation with plan to overdose on narcotics secondary to life stressors. Plan: CV 15 minute safety checks Increase lexapro to 10mg PO daily Decrease klonopin to 0.5mg PO BID and 1mg PO bedtime Start: Clonidine 0.1mg PO TID PRN referral to outpatient psychiatric providers encourage groups referral to substance abuse program discharge planning 06/17: Active on unit, social with peers. attending groups. Pt reports feeling better than yesterday ; continues to report anxiety and depression. Pt stated, I'm not feeling hopeless today ; pt denies SI/HI/VH/AH. He reports some nightmares but improved from days prior. Continue current tx plan. 06/18: Pt reports feeling anxious d/t being away from his girlfriend. Pt stated, I'm grateful that I'm here because the life I'm living make me depressed . Pt is hoping he is accepted into the [facility]. denies SI/HI/VH/AH. Continue current tx plan. 06/19: Pt continues to report feeling anxious and depressed; pt stated, my mind feels blank today. I don't feel like myself. I'm just worried about different things . Pt reports sleeping well last night. Klonopin decreased to 0.5mg PO daily and 1mg PO bedtime. Switched clonidine 0.1mg PO TID from PRN to scheduled. 06/20: Active on unit, social with peers, attending groups. Pt reports feeling depressed today; pt stated, I'm not feeling as anxious. It's more the depression. I know it takes a while for the medication to work . Pt reports improved sleep after taking Trazodone last evening, slept 8 hours. denies SI/HI/VH/AH. Pt is hoping he is accepted into any program for substance help . Continue with klonopin taper. Increase Lexapro to 20mg PO daily 06/21 walked out on provider over conversation re inc clonazepam - told him most css will not take him with clonazepam- also looked pt up on [facility] getting 6mg /clonazepam in 14 day intervels with subs someone should call provider and discuss concerns Patient educated on: medication risk/benefits Informed Consent: does not understand and further education needed Reason for continued inpatient stay Substantial Risk for: rapid decompensation Time Spent With Patient Time: Total time managing care of this patient today ____ minutes.
[2024-06-21] MEDS: clonazePAM 0.5 MG TABLET PO (09:30)
[2024-06-21] MEDS: Acamprosate Calcium 333 MG TABLET.DR PO ×3 (09:30→20:29)
[2024-06-21] MEDS: Tamsulosin HCL 0.4 MG CAPSULE PO (09:30)
[2024-06-21] MEDS: Buprenorphine/Naloxone 8/2 mg FILM 1 FILM BUCCAL ×3 (09:30→20:29)
[2024-06-21] MEDS: Escitalopram Oxalate 20 MG TABLET PO (09:30)
[2024-06-21] MEDS: Nicotine 21 MG PATCH.TD24 TRANSDERMA (09:33)
[2024-06-21 09:35] VITALS: BP 91/53
[2024-06-21] MEDS: Nicotine Polacrilex 2 MG GUM 4 MG BUCCAL (09:46)
--- NOTE | 2024-06-21 10:28 | PC.NURSE ---
Patient Clonidine held due to BP 91/53. Catie Chavez notified.
[2024-06-21 15:02] VITALS: BP 100/66
[2024-06-21] MEDS: cloNIDine HCL 0.1 MG TABLET PO ×2 (15:02→20:29)
[2024-06-21 19:30] VITALS: BP 117/59; PULSE 59; RESP 16; TEMP 37; O2SAT 98
[2024-06-21] MEDS: traZODone HCL 50 MG TABLET PO (20:29)
[2024-06-21] MEDS: clonazePAM 1 MG TABLET PO (20:29)
[2024-06-22 07:40] VITALS: BP 93/55; PULSE 56; RESP 14; TEMP 36.9; O2SAT 95
[2024-06-22] MEDS: Tamsulosin HCL 0.4 MG CAPSULE PO (09:08)
[2024-06-22] MEDS: clonazePAM 0.5 MG TABLET PO (09:08)
[2024-06-22] MEDS: Acamprosate Calcium 333 MG TABLET.DR PO ×3 (09:08→20:44)
[2024-06-22] MEDS: Escitalopram Oxalate 20 MG TABLET PO (09:08)
[2024-06-22] MEDS: Nicotine 21 MG PATCH.TD24 TRANSDERMA (09:11)
[2024-06-22] MEDS: Nicotine Polacrilex 2 MG GUM 4 MG BUCCAL (10:48)
[2024-06-22 15:20] VITALS: BP 116/62
[2024-06-22] MEDS: cloNIDine HCL 0.1 MG TABLET PO ×2 (15:20→20:44)
[2024-06-22] MEDS: Buprenorphine/Naloxone 8/2 mg FILM 1 FILM BUCCAL ×2 (15:20→20:44)
[2024-06-22 20:35] VITALS: BP 114/73; PULSE 64; RESP 16; TEMP 36.4; O2SAT 98
[2024-06-22 20:44] VITALS: BP 114/73
[2024-06-22] MEDS: hydrOXYzine HCL 25 MG TABLET PO (20:44)
[2024-06-22] MEDS: clonazePAM 1 MG TABLET PO (20:44)
--- NOTE | 2024-06-23 07:44 | HO.PSYCHPN ---
Subjective Subjective Date of Service: 06/22/24 Reason For Visit: Crisis Subjective Notes: Conditional Voluntary Medical Problems Affecting Mental Status: No Interim History: refused to meet with provider due to my not agreeing to inc clonazepam he feels he needs for his panic disorder- Meanwhile easily playing cards with staff/patients on unit. Looked him on [facility] last pm 6mg clonazepam being prescribed outpatient with suboxone 14 days at a time by someone. Does not appear in withdrawl on 1.5 and does not appear to be having panic on unit. Medication Compliance: Yes Side effects from medications: No Attending Groups: Yes Review of Systems Acute medical concerns: No Medical Review of Systems: unchanged Mental Status Exam Mental Status Exam Narrative: refused to meet, cheerful and friendly on unit - with other patients- staff Diagnostics Vital Signs (24Hr): Vital Signs - 24 hr 06/22/24 15:20 06/22/24 20:35 06/22/24 20:44 Temperature 97.5 F Pulse Rate 64 Respiratory Rate 16 Blood Pressure 116/62 114/73 114/73 Pulse Oximetry 98 Oxygen Delivery Method Room Air BMI result Body Mass Index 27.8 Labs 06/15/24 20:09 06/17/24 08:21 Medications Medications Current Medications Acamprosate (Acamprosate Calcium 333 Mg Tablet.Dr) 333 mg PO TID [facility] Last Admin: 06/22/24 20:44 Dose: 333 mg Acetaminophen (Acetaminophen 325 Mg Tablet) 650 mg PO Q6H PRN PRN Reason: Headache/Pain Mild Scale (1-3) Last Admin: 06/18/24 09:42 Dose: 650 mg Al Hydroxide/Mg Hydroxide (Magnesium Hydrox/Alum Hydrox 30 Ml Oral.Susp) 30 ml PO Q6H PRN PRN Reason: Heartburn/Nausea Buprenorphine/Naloxone (Buprenorphine/Naloxone 8/2 Mg Film) 1 film BUCCAL TID [facility] Last Admin: 06/22/24 20:44 Dose: 1 film Clonazepam (Clonazepam 1 Mg Tablet) 1 mg PO BEDTIME [facility] Last Admin: 06/22/24 20:44 Dose: 1 mg Clonazepam (Clonazepam 0.5 Mg Tablet) 0.5 mg PO DAILY [facility] Last Admin: 06/22/24 09:08 Dose: 0.5 mg Clonidine HCl (Clonidine Hcl 0.1 Mg Tablet) 0.1 mg PO TID [facility]; Protocol Last Admin: 06/22/24 20:44 Dose: 0.1 mg Escitalopram Oxalate (Escitalopram Oxalate 20 Mg Tablet) 20 mg PO DAILY [facility] Last Admin: 06/22/24 09:08 Dose: 20 mg Hydroxyzine HCl (Hydroxyzine Hcl 25 Mg Tablet) 25 mg PO Q6H PRN PRN Reason: Anxiety Last Admin: 06/22/24 20:44 Dose: 25 mg Magnesium Hydroxide (Milk Of Magnesia 30 Ml Oral.Susp) 30 ml PO DAILY PRN PRN Reason: Constipation Nicotine (Nicotine 21 Mg Patch.Td24) 21 mg TRANSDERMA DAILY [facility] Last Admin: 06/22/24 09:11 Dose: 21 mg Nicotine Polacrilex (Nicotine Polacrilex 2 Mg Gum) 4 mg BUCCAL Q2H PRN PRN Reason: Nicotine Cravings Last Admin: 06/22/24 10:48 Dose: 4 mg Tamsulosin HCl (Tamsulosin Hcl 0.4 Mg Capsule) 0.4 mg PO DAILY [facility] Last Admin: 06/22/24 09:08 Dose: 0.4 mg Trazodone HCl (Trazodone Hcl 50 Mg Tablet) 50 mg PO BEDTIME MRX1 PRN PRN Reason: Insomnia Last Admin: 06/21/24 20:29 Dose: 50 mg Allergies Allergies Allergy/AdvReac Type Severity Reaction Status Date / Time No Known Allergies Allergy Verified 06/15/24 19:57 Assessment & Plan Assessment & Plan (1) MDD (major depressive disorder), recurrent episode: Status: Acute Code(s): F33.9 - Major depressive disorder, recurrent, unspecified (2) PTSD (post-traumatic stress disorder): Status: Acute Code(s): F43.10 - Post-traumatic stress disorder, unspecified (3) Cocaine use disorder: Status: Acute Code(s): F14.10 - Cocaine abuse, uncomplicated (4) Opioid use disorder: Status: Acute Code(s): F11.90 - Opioid use, unspecified, uncomplicated Plan Patient is a 54-year-old male with history of MDD, PTSD, cocaine use disorder, opiate use disorder, who self presented to [facility] due to suicidal ideation with plan to overdose on narcotics secondary to life stressors. Plan: CV 15 minute safety checks Increase lexapro to 10mg PO daily Decrease klonopin to 0.5mg PO BID and 1mg PO bedtime Start: Clonidine 0.1mg PO TID PRN referral to outpatient psychiatric providers encourage groups referral to substance abuse program discharge planning 06/17: Active on unit, social with peers. attending groups. Pt reports feeling better than yesterday ; continues to report anxiety and depression. Pt stated, I'm not feeling hopeless today ; pt denies SI/HI/VH/AH. He reports some nightmares but improved from days prior. Continue current tx plan. 06/18: Pt reports feeling anxious d/t being away from his girlfriend. Pt stated, I'm grateful that I'm here because the life I'm living make me depressed . Pt is hoping he is accepted into the [facility]. denies SI/HI/VH/AH. Continue current tx plan. 06/19: Pt continues to report feeling anxious and depressed; pt stated, my mind feels blank today. I don't feel like myself. I'm just worried about different things . Pt reports sleeping well last night. Klonopin decreased to 0.5mg PO daily and 1mg PO bedtime. Switched clonidine 0.1mg PO TID from PRN to scheduled. 06/20: Active on unit, social with peers, attending groups. Pt reports feeling depressed today; pt stated, I'm not feeling as anxious. It's more the depression. I know it takes a while for the medication to work . Pt reports improved sleep after taking Trazodone last evening, slept 8 hours. denies SI/HI/VH/AH. Pt is hoping he is accepted into any program for substance help . Continue with klonopin taper. Increase Lexapro to 20mg PO daily 06/21 walked out on provider over conversation re inc clonazepam - told him most [facility] will not take him with clonazepam- also looked pt up on [facility] getting 6mg /clonazepam in 14 day intervels with subs someone should call provider and discuss concerns 06/22- pt refused to meet with provider-engaged with other staff CTP Reason for continued inpatient stay Substantial Risk for: rapid decompensation Time Spent With Patient Time: Total time managing care of this patient today ____ minutes.
[2024-06-23 07:46] VITALS: BP 101/59; PULSE 53; TEMP 36.8; O2SAT 95
[2024-06-23 08:42] VITALS: BP 101/59
[2024-06-23] MEDS: Buprenorphine/Naloxone 8/2 mg FILM 1 FILM BUCCAL ×3 (08:42→21:18)
[2024-06-23] MEDS: cloNIDine HCL 0.1 MG TABLET PO ×3 (08:42→21:19)
[2024-06-23] MEDS: Escitalopram Oxalate 20 MG TABLET PO (08:43)
[2024-06-23] MEDS: Acamprosate Calcium 333 MG TABLET.DR PO ×3 (08:43→21:19)
[2024-06-23] MEDS: Tamsulosin HCL 0.4 MG CAPSULE PO (08:43)
[2024-06-23] MEDS: clonazePAM 0.5 MG TABLET PO ×3 (08:43→21:19)
[2024-06-23] MEDS: Nicotine 21 MG PATCH.TD24 TRANSDERMA (08:44)
[2024-06-23] MEDS: Nicotine Polacrilex 2 MG GUM 4 MG BUCCAL ×3 (09:51→21:19)
--- NOTE | 2024-06-23 09:57 | HO.PSYCHPN ---
Subjective Subjective Date of Service: 06/23/24 Reason For Visit: Crisis Subjective Notes: Conditional Voluntary Interim History: Reviewed with Dr. Roberson. Active on unit, social with peers. Attending groups. Patient continues to report high anxiety despite observed laughing and joking with peers. Patient reports waiting on placement to [facility]. He is agreeable to going to a homeless half-way if no bed is available at [facility] this week. Denies SI/HI/VH/AH. Klonopin changed to 0.5 mg TID. Start: Seroquel 25 mg BID PRN Monitor vitals. Medication Compliance: Yes Side effects from medications: No Attending Groups: Yes Review of Systems Constitutional: Reports as per HPI Eyes: Reports as per HPI Reports as per HPI Cardiovascular: Reports as per HPI Respiratory: Reports as per HPI Gastrointestinal: Reports as per HPI Genitourinary: Reports as per HPI Musculoskeletal: Reports as per HPI Skin/Breast: Reports as per HPI Reports as per HPI Psychiatric: Reports as per HPI Endocrine: Reports as per HPI Hematologic/Lymphatic: Reports as per HPI Allergic/Immunologic: Reports as per HPI Mental Status Exam Mental Status Exam Narrative: Pt is alert and oriented; behavior is cooperative and calm; dressed in casual attire; mood is described as anxious ; eye contact appropriate; Speech is normal rate, volume and not pressured; thought process is organized and goal directed; Thought content is on tx; denies SI/HI/AH/VH Diagnostics Vital Signs (24Hr): Vital Signs - 24 hr 06/22/24 15:20 06/22/24 20:35 06/22/24 20:44 Temperature 97.5 F Pulse Rate 64 Respiratory Rate 16 Blood Pressure 116/62 114/73 114/73 Pulse Oximetry 98 Oxygen Delivery Method Room Air 06/23/24 07:46 06/23/24 08:42 Temperature 98.3 F Pulse Rate 53 Respiratory Rate Blood Pressure 101/59 L 101/59 L Pulse Oximetry 95 Oxygen Delivery Method Room Air BMI result Body Mass Index 27.8 Labs 06/15/24 20:09 06/17/24 08:21 Medications Medications Current Medications Acamprosate (Acamprosate Calcium 333 Mg Tablet.) 333 mg PO TID [facility] Last Admin: 06/23/24 08:43 Dose: 333 mg Acetaminophen (Acetaminophen 325 Mg Tablet) 650 mg PO Q6H PRN PRN Reason: Headache/Pain Mild Scale (1-3) Last Admin: 06/18/24 09:42 Dose: 650 mg Al Hydroxide/Mg Hydroxide (Magnesium Hydrox/Alum Hydrox 30 Ml Oral.Susp) 30 ml PO Q6H PRN PRN Reason: Heartburn/Nausea Buprenorphine/Naloxone (Buprenorphine/Naloxone 8/2 Mg Film) 1 film BUCCAL TID [facility] Last Admin: 06/23/24 08:42 Dose: 1 film Clonazepam (Clonazepam 1 Mg Tablet) 1 mg PO BEDTIME [facility] Last Admin: 06/22/24 20:44 Dose: 1 mg Clonazepam (Clonazepam 0.5 Mg Tablet) 0.5 mg PO DAILY [facility] Last Admin: 06/23/24 08:43 Dose: 0.5 mg Clonidine HCl (Clonidine Hcl 0.1 Mg Tablet) 0.1 mg PO TID [facility]; Protocol Last Admin: 06/23/24 08:42 Dose: 0.1 mg Escitalopram Oxalate (Escitalopram Oxalate 20 Mg Tablet) 20 mg PO DAILY [facility] Last Admin: 06/23/24 08:43 Dose: 20 mg Hydroxyzine HCl (Hydroxyzine Hcl 25 Mg Tablet) 25 mg PO Q6H PRN PRN Reason: Anxiety Last Admin: 06/22/24 20:44 Dose: 25 mg Magnesium Hydroxide (Milk Of Magnesia 30 Ml Oral.Susp) 30 ml PO DAILY PRN PRN Reason: Constipation Nicotine (Nicotine 21 Mg Patch.Td24) 21 mg TRANSDERMA DAILY [facility] Last Admin: 06/23/24 08:44 Dose: 21 mg Nicotine Polacrilex (Nicotine Polacrilex 2 Mg Gum) 4 mg BUCCAL Q2H PRN PRN Reason: Nicotine Cravings Last Admin: 06/23/24 09:51 Dose: 4 mg Tamsulosin HCl (Tamsulosin Hcl 0.4 Mg Capsule) 0.4 mg PO DAILY [facility] Last Admin: 06/23/24 08:43 Dose: 0.4 mg Trazodone HCl (Trazodone Hcl 50 Mg Tablet) 50 mg PO BEDTIME MRX1 PRN PRN Reason: Insomnia Last Admin: 06/21/24 20:29 Dose: 50 mg Allergies Allergies Allergy/AdvReac Type Severity Reaction Status Date / Time No Known Allergies Allergy Verified 06/15/24 19:57 Assessment & Plan Assessment & Plan (1) MDD (major depressive disorder), recurrent episode: Status: Acute Code(s): F33.9 - Major depressive disorder, recurrent, unspecified (2) PTSD (post-traumatic stress disorder): Status: Acute Code(s): F43.10 - Post-traumatic stress disorder, unspecified (3) Cocaine use disorder: Status: Acute Code(s): F14.10 - Cocaine abuse, uncomplicated (4) Opioid use disorder: Status: Acute Code(s): F11.90 - Opioid use, unspecified, uncomplicated Plan Patient is a 54-year-old male with history of MDD, PTSD, cocaine use disorder, opiate use disorder, who self presented to [facility] due to suicidal ideation with plan to overdose on narcotics secondary to life stressors. Plan: CV 15 minute safety checks Increase lexapro to 10mg PO daily Decrease klonopin to 0.5mg PO BID and 1mg PO bedtime Start: Clonidine 0.1mg PO TID PRN referral to outpatient psychiatric providers encourage groups referral to substance abuse program discharge planning 06/17: Active on unit, social with peers. attending groups. Pt reports feeling better than yesterday ; continues to report anxiety and depression. Pt stated, I'm not feeling hopeless today ; pt denies SI/HI/VH/AH. He reports some nightmares but improved from days prior. Continue current tx plan. 06/18: Pt reports feeling anxious d/t being away from his girlfriend. Pt stated, I'm grateful that I'm here because the life I'm living make me depressed . Pt is hoping he is accepted into the [facility]. denies SI/HI/VH/AH. Continue current tx plan. 06/19: Pt continues to report feeling anxious and depressed; pt stated, my mind feels blank today. I don't feel like myself. I'm just worried about different things . Pt reports sleeping well last night. Klonopin decreased to 0.5mg PO daily and 1mg PO bedtime. Switched clonidine 0.1mg PO TID from PRN to scheduled. 06/20: Active on unit, social with peers, attending groups. Pt reports feeling depressed today; pt stated, I'm not feeling as anxious. It's more the depression. I know it takes a while for the medication to work . Pt reports improved sleep after taking Trazodone last evening, slept 8 hours. denies SI/HI/VH/AH. Pt is hoping he is accepted into any program for substance help . Continue with klonopin taper. Increase Lexapro to 20mg PO daily 06/23: Active on unit, social with peers. Attending groups. Patient continues to report high anxiety despite observed laughing and joking with peers. Patient reports waiting on placement to [facility]. He is agreeable to going to a homeless half-way if no bed is available at [facility] this week. Denies SI/HI/VH/AH. Klonopin changed to 0.5 mg TID. Start: Seroquel 25 mg BID PRN Monitor vitals. Patient educated on: diagnosis, medication risk/benefits, substance abuse and therapeutic strategies Informed Consent: understands Reason for continued inpatient stay Substantial Risk for: med/psych decompensation Time Spent With Patient Time: Total time managing care of this patient today _20___ minutes.
[2024-06-23 15:08] VITALS: BP 109/59
[2024-06-23 21:15] VITALS: BP 116/61; PULSE 64; RESP 16; TEMP 37.1; O2SAT 98
[2024-06-23 21:19] VITALS: BP 116/61
[2024-06-24 07:33] VITALS: PULSE 53; RESP 16; TEMP 36.4; O2SAT 96
[2024-06-24 09:45] VITALS: BP 110/56
[2024-06-24] MEDS: clonazePAM 0.5 MG TABLET PO ×3 (09:45→20:50)
[2024-06-24] MEDS: Tamsulosin HCL 0.4 MG CAPSULE PO (09:45)
[2024-06-24] MEDS: cloNIDine HCL 0.1 MG TABLET PO ×3 (09:45→20:50)
[2024-06-24] MEDS: Escitalopram Oxalate 20 MG TABLET PO (09:46)
[2024-06-24] MEDS: Buprenorphine/Naloxone 8/2 mg FILM 1 FILM BUCCAL ×3 (09:46→20:50)
[2024-06-24] MEDS: Nicotine 21 MG PATCH.TD24 TRANSDERMA (09:47)
[2024-06-24] MEDS: Acamprosate Calcium 333 MG TABLET.DR PO ×3 (09:49→20:50)
--- NOTE | 2024-06-24 13:40 | P.PNPSI_ITS ---
Subjective Subjective Date of Service: 06/24/24 Reason For Visit: Crisis Subjective Notes: Conditional Voluntary Interim History: Reviewed with Dr. Roberson. Active on unit, social with peers. Attending groups. Patient reports feeling better today; he denies feeling anxious or depressed today. Patient was accepted to [facility] and will be discharging tomorrow morning. Patient stated, I'm happy that I got a bed there . He reports sleeping well last night. denies SI/HI/VH/AH. Medication Compliance: Yes Side effects from medications: No Attending Groups: Yes Review of Systems Constitutional: Reports as per HPI Eyes: Reports as per HPI Reports as per HPI Cardiovascular: Reports as per HPI Respiratory: Reports as per HPI Gastrointestinal: Reports as per HPI Genitourinary: Reports as per HPI Musculoskeletal: Reports as per HPI Skin/Breast: Reports as per HPI Reports as per HPI Psychiatric: Reports as per HPI Endocrine: Reports as per HPI Hematologic/Lymphatic: Reports as per HPI Allergic/Immunologic: Reports as per HPI Mental Status Exam Mental Status Exam Narrative: Pt is alert and oriented; behavior is cooperative, friendly and calm; dressed in casual attire; mood is described as good ; eye contact appropriate; Speech is normal rate, volume and not pressured; thought process is organized; Thought content is on tx; denies SI/HI/VH/AH. Diagnostics Vital Signs (24Hr): Vital Signs - 24 hr 06/23/24 15:08 06/23/24 21:15 06/23/24 21:19 Temperature 98.7 F Pulse Rate 64 Respiratory Rate 16 Blood Pressure 109/59 L 116/61 116/61 Pulse Oximetry 98 Oxygen Delivery Method Room Air 06/24/24 07:33 06/24/24 09:45 Temperature 97.6 F Pulse Rate 53 Respiratory Rate 16 Blood Pressure 110/56 L Pulse Oximetry 96 Oxygen Delivery Method Room Air BMI result Body Mass Index 27.8 Labs 06/15/24 20:09 06/17/24 08:21 Medications Medications Current Medications Acamprosate (Acamprosate Calcium 333 Mg Tablet.) 333 mg PO TID [facility] Last Admin: 06/24/24 09:49 Dose: 333 mg Acetaminophen (Acetaminophen 325 Mg Tablet) 650 mg PO Q6H PRN PRN Reason: Headache/Pain Mild Scale (1-3) Last Admin: 06/18/24 09:42 Dose: 650 mg Al Hydroxide/Mg Hydroxide (Magnesium Hydrox/Alum Hydrox 30 Ml Oral.Susp) 30 ml PO Q6H PRN PRN Reason: Heartburn/Nausea Buprenorphine/Naloxone (Buprenorphine/Naloxone 8/2 Mg Film) 1 film BUCCAL TID [facility] Last Admin: 06/24/24 09:46 Dose: 1 film Clonazepam (Clonazepam 0.5 Mg Tablet) 0.5 mg PO TID [facility] Last Admin: 06/24/24 09:45 Dose: 0.5 mg Clonidine HCl (Clonidine Hcl 0.1 Mg Tablet) 0.1 mg PO TID [facility]; Protocol Last Admin: 06/24/24 09:45 Dose: 0.1 mg Escitalopram Oxalate (Escitalopram Oxalate 20 Mg Tablet) 20 mg PO DAILY [facility] Last Admin: 06/24/24 09:46 Dose: 20 mg Hydroxyzine HCl (Hydroxyzine Hcl 25 Mg Tablet) 25 mg PO Q6H PRN PRN Reason: Anxiety Last Admin: 06/22/24 20:44 Dose: 25 mg Magnesium Hydroxide (Milk Of Magnesia 30 Ml Oral.Susp) 30 ml PO DAILY PRN PRN Reason: Constipation Nicotine (Nicotine 21 Mg Patch.Td24) 21 mg TRANSDERMA DAILY [facility] Last Admin: 06/24/24 09:47 Dose: 21 mg Nicotine Polacrilex (Nicotine Polacrilex 2 Mg Gum) 4 mg BUCCAL Q2H PRN PRN Reason: Nicotine Cravings Last Admin: 06/23/24 21:19 Dose: 4 mg Quetiapine Fumarate (Quetiapine Fumarate 25 Mg Tablet) 25 mg PO BID PRN PRN Reason: Anxiety Tamsulosin HCl (Tamsulosin Hcl 0.4 Mg Capsule) 0.4 mg PO DAILY [facility] Last Admin: 06/24/24 09:45 Dose: 0.4 mg Trazodone HCl (Trazodone Hcl 50 Mg Tablet) 50 mg PO BEDTIME MRX1 PRN PRN Reason: Insomnia Last Admin: 06/21/24 20:29 Dose: 50 mg Allergies Allergies Allergy/AdvReac Type Severity Reaction Status Date / Time No Known Allergies Allergy Verified 06/15/24 19:57 Assessment & Plan Assessment & Plan (1) MDD (major depressive disorder), recurrent episode: Status: Acute Code(s): F33.9 - Major depressive disorder, recurrent, unspecified (2) PTSD (post-traumatic stress disorder): Status: Acute Code(s): F43.10 - Post-traumatic stress disorder, unspecified (3) Cocaine use disorder: Status: Acute Code(s): F14.10 - Cocaine abuse, uncomplicated (4) Opioid use disorder: Status: Acute Code(s): F11.90 - Opioid use, unspecified, uncomplicated Plan Patient is a 54-year-old male with history of MDD, PTSD, cocaine use disorder, opiate use disorder, who self presented to [facility] due to suicidal ideation with plan to overdose on narcotics secondary to life stressors. Plan: CV 15 minute safety checks Increase lexapro to 10mg PO daily Decrease klonopin to 0.5mg PO BID and 1mg PO bedtime Start: Clonidine 0.1mg PO TID PRN referral to outpatient psychiatric providers encourage groups referral to substance abuse program discharge planning 06/17: Active on unit, social with peers. attending groups. Pt reports feeling better than yesterday ; continues to report anxiety and depression. Pt stated, I'm not feeling hopeless today ; pt denies SI/HI/VH/AH. He reports some nightmares but improved from days prior. Continue current tx plan. 06/18: Pt reports feeling anxious d/t being away from his girlfriend. Pt stated, I'm grateful that I'm here because the life I'm living make me depressed . Pt is hoping he is accepted into the [facility]. denies SI/HI/VH/AH. Continue current tx plan. 06/19: Pt continues to report feeling anxious and depressed; pt stated, my mind feels blank today. I don't feel like myself. I'm just worried about different things . Pt reports sleeping well last night. Klonopin decreased to 0.5mg PO daily and 1mg PO bedtime. Switched clonidine 0.1mg PO TID from PRN to scheduled. 06/20: Active on unit, social with peers, attending groups. Pt reports feeling depressed today; pt stated, I'm not feeling as anxious. It's more the depression. I know it takes a while for the medication to work . Pt reports improved sleep after taking Trazodone last evening, slept 8 hours. denies SI/HI/VH/AH. Pt is hoping he is accepted into any program for substance help . Continue with klonopin taper. Increase Lexapro to 20mg PO daily 06/23: Active on unit, social with peers. Attending groups. Patient continues to report high anxiety despite observed laughing and joking with peers. Patient reports waiting on placement to [facility]. He is agreeable to going to a homeless care home if no bed is available at [facility] this week. Denies SI/HI/VH/AH. Klonopin changed to 0.5 mg TID. Start: Seroquel 25 mg BID PRN Monitor vitals. 06/24: Active on unit, social with peers. Attending groups. Patient reports feeling better today; he denies feeling anxious or depressed today. Patient was accepted to [facility] and will be discharging tomorrow morning. Patient stated, I'm happy that I got a bed there . He reports sleeping well last night. denies SI/HI/VH/AH. Patient educated on: diagnosis, medication risk/benefits, substance abuse and therapeutic strategies Reason for continued inpatient stay Substantial Risk for: stable for discharge Time Spent With Patient Time: Total time managing care of this patient today _20___ minutes.
[2024-06-24 15:48] VITALS: BP 104/60
[2024-06-24] MEDS: Nicotine Polacrilex 2 MG GUM 4 MG BUCCAL (15:51)
[2024-06-24 20:45] VITALS: BP 110/62; PULSE 60; RESP 16; TEMP 36.8; O2SAT 98
[2024-06-25 07:32] VITALS: BP 91/57; PULSE 54; RESP 16; TEMP 36.9; O2SAT 94
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
[2024-06-25] MEDS: Acamprosate Calcium 333 MG TABLET.DR PO (08:37)
[2024-06-25] MEDS: clonazePAM 0.5 MG TABLET PO (08:37)
[2024-06-25] MEDS: Escitalopram Oxalate 20 MG TABLET PO (08:38)
[2024-06-25] MEDS: Nicotine 21 MG PATCH.TD24 TRANSDERMA (08:38)
[2024-06-25] MEDS: Tamsulosin HCL 0.4 MG CAPSULE PO (08:38)
[2024-06-25] MEDS: Naloxone HCl Nasal TAKE HOME 4 MG SPRAY 8 MG NOSTRILALT (08:41)
[2024-06-25] MEDS: Acetaminophen 325 MG TABLET 650 MG PO (08:41)
[2024-06-25] MEDS: Buprenorphine/Naloxone 8/2 mg FILM 1 FILM BUCCAL (08:44)
[2024-06-25] MEDS: Nicotine Polacrilex 2 MG GUM 4 MG BUCCAL (08:55)
--- NOTE | 2024-06-25 09:50 | PC.NURSE ---
Discharge paperwork reviewed with pt. He verbalized plan to go to senior care, I don't want to go to [facility] because they won't give me the klonopin dose I need. Pt's home meds returned to pt including klonopin 1mg 44 tabs. Pt verbalized plan to take his klonopin as previously prescribed: 1mg tid. Pt was educated about current medication orders and he verbalized understanding that his current prescribed dose is klonopin 0.5mg tid. Pt is future oriented to talking to his girlfriend by phone eloisa and to seeing her in 2 weeks when she is discharged from [place]. He is discharged at this time per provider order.
== END 2024-06-25 09:55 | disposition home or self-care (01) | DRG 751 ==
LOC: HO.ED 21:42 → HO.PADLT16 06-16 11:31
PROVIDERS: Physician Assistant; Admitting Provider Registered Nurse; Emergency Provider Emergency Medicine; Responsible Provider Registered Nurse; Visit Provider Psychiatry & Neurology Psychiatry
DX: F33.9 Major depressive disorder, recurrent, unspecified (principal); R45.851 Suicidal ideations; F11.20 Opioid dependence, uncomplicated; F19.90 Other psychoactive substance use, unspecified, uncomplicated; Z59.02 Unsheltered homelessness; F43.10 Post-traumatic stress disorder, unspecified; Z91.51 Personal history of suicidal behavior; F14.10 Cocaine abuse, uncomplicated; F17.210 Nicotine dependence, cigarettes, uncomplicated; Z71.6 Tobacco abuse counseling; Z79.899 Other long term (current) drug therapy
CPT/HCPCS: 36415; 80048; 80053; 80061; 80076; 80143; 80179; 80307; 81001; 84484; 85025; 93005; 99285; S9485

== ENCOUNTER → 2024-06-16 11:21 | Outpatient (BNV) | payer OTHER, SELFPAY | PROVIDERS: Admitting Provider Registered Nurse; Emergency Provider Emergency Medicine; Responsible Provider Registered Nurse; Visit Provider Registered Nurse | DX: F33.2 Major depressive disorder, recurrent severe without psychotic features (principal); F14.10 Cocaine abuse, uncomplicated; F11.90 Opioid use, unspecified, uncomplicated; F43.11 Post-traumatic stress disorder, acute | CPT/HCPCS: 99231; 99232; 99233; 99238 ==

== ENCOUNTER 2024-06-25 23:26 | Emergency (ER) | payer OTHER, SELFPAY ==
--- NOTE | 2024-06-25 | ECG_ITS ---
Test Reason : CP Blood Pressure : / mmHG Vent. Rate : 105 BPM Atrial Rate : 105 BPM P-R Int : 136 ms QRS Dur : 082 ms QT Int : 326 ms P-R-T Axes : 063 -34 039 degrees QTc Int : 430 ms Sinus tachycardia Left axis deviation Abnormal ECG When compared with ECG of 15-JUN-2024 19:57, Sinus rhythm has replaced Ectopic atrial rhythm Vent. rate has increased BY 54 BPM T wave inversion no longer evident in Inferior leads Referred By: Generic ED Physician Electronically Signed By:MARIANNA BOLANOS
--- NOTE | ~2024-06-25 | XR_ITS ---
EXAMINATION: XR CHEST CLINICAL INFORMATION: Chest pain and cough COMPARISON: None available. TECHNIQUE: 2 views of the chest were obtained. FINDINGS: Multiple diffuse small calcified granulomas both lungs. There has been surgical resection of the distal right clavicle. No other significant abnormality is noted involving the heart, lungs, mediastinum, bony thorax or soft tissues. XR/XR chest 2V IMPRESSION: No acute intrathoracic disease. Old granulomatous disease. Electronically signed by: Lion Gaines MD 06/26/2024 01:03 AM EDT
[2024-06-25 23:34] VITALS: BP 130/73; PULSE 104; RESP 18; TEMP 36.9; O2SAT 97; BMI 28.1
[2024-06-25 23:55] LABS: Hematocrit 40.7 % (42.0-52.0); Hemoglobin 14.1 g/dl (14.0-18.0); Mean Corpuscular HGB Conc 34.6 g/dl (31.0-36.0); Mean Corpuscular Hemoglobin 32.6 pg (27.0-33.0); Mean Platelet Volume 9.9 fL (9.4-12.4); Platelet Count 253 X10*3/uL (160-400); Red Blood Count 4.33 X10*6/uL (4.60-5.80); Red Cell Distribution Width 14.1 % (11.0-16.0); White Blood Count 17.1 X10*3/uL (4.8-10.8)
[2024-06-26 00:01] LABS: Prothrombin Time 12.5 SEC (11.1-13.3)
[2024-06-26 00:12] LABS: Alanine Aminotransferase 43 U/L (0-40); Albumin Level 4.2 g/dL (3.5-5.0); Alkaline Phosphatase 75 U/L (39-117); Anion Gap 16 (12-20); Aspartate Amino Transferase 45 U/L (5-37); Bilirubin Total 0.4 mg/dL (0.0-1.0); Blood Urea Nitrogen 22 mg/dL (9-16); Calcium 9.6 mg/dL (8.4-10.2); Carbon Dioxide 25 mmol/L (22-29); Chloride 104 mmol/L (96-108); Creatinine Clr Calc Pharmacy 79.1; Estimated Glomerular Filt Rate > 60; Glucose Random 117 mg/dL (60-115); Potassium 4.9 mmol/L (3.3-5.1); Sodium 140 mmol/L (135-145); Total Protein 9.1 g/dL (6.5-8.0)
[2024-06-26 00:15] LABS: Troponin-I High Sensitivity 33.9 ng/L (<3.5-35.0)
--- NOTE | 2024-06-26 00:37 | ED.CHESTPAIN ---
HPI - Chest Pain General Chief Complaint: Chest Pain Stated Complaint: Chest Pains Time Seen by Provider: 06/26/24 00:37 Source: patient Mode of arrival: ambulatory Limitations: no limitations History of Present Illness ED Provider: Dr. Lott HPI narrative: patient was discharged from psych yesterday when he felt he was not ready. States that when he got home he became anxious with chest pain and then took 9 klonopin in an attempt to kill himself. complaint: chest pain Related Data Previous Rx's ?Medication ?Instructions ?Recorded acamprosate 333 mg tablet,delayed 333 mg PO TID 30 days #90 tabs 06/24/24 release clonazepam 0.5 mg tablet 0.5 mg PO TID 7 days #21 tabs 06/24/24 clonidine HCl 0.1 mg tablet 0.1 mg PO TID 30 days #90 tabs 06/24/24 escitalopram oxalate 20 mg tablet 20 mg PO DAILY 30 days #30 tabs 06/24/24 hydroxyzine HCl 50 mg tablet 50 mg PO BEDTIME PRN Insomnia 30 06/24/24 days #30 tabs nicotine (polacrilex) 2 mg gum 4 mg buccal Q2H PRN Nicotine 06/24/24 Cravings 30 days #50 ea nicotine 21 mg/24 hr daily 21 mg transdermal DAILY 30 days 06/24/24 transdermal patch #28 ea tamsulosin 0.4 mg capsule 0.4 mg PO DAILY 30 days #30 caps 06/24/24 buprenorphine 8 mg-naloxone 2 mg 1 film buccal TID 5 days #15 ea 06/25/24 sublingual film (Suboxone) Allergies Allergy/AdvReac Type Severity Reaction Status Date / Time No Known Allergies Allergy Verified 06/25/24 23:35 Review of Systems Review of Systems: Yes all other systems are reviewed and are negative Neurologic: Denies Sensory deficit (Neuro) [facility] Social History Social History Household Members: None Household Members Other:: Homeless Housing: Other Housing Other:: car Do you presently have visiting nurse or other home services: No Alcohol intake: current Alcohol intake frequency: 3 or more drinks per day Patient Tobacco Use Status: Current everyday Tobacco user Tobacco use type: Cigarette Cigarettes Per Day: 40 Years Smoked: 40 Smoked in Last 30 Days: Yes e-Cigarette/Vaping Use: Never Used Second Hand Smoke Exposure: Yes Use of substances other than those prescribed or required for medical reasons: No Substance Use Type: Crack/Cocaine Advance Directives: No Advance Directives Information Provided: Yes Do you have a plan to hurt others: No Plan service: No Sexual orientation: Straight/Heterosexual Physical Exam Vital Signs: Vital Signs: Last Vital Signs Temp 98.4 F 06/26/24 03:44 Pulse 68 06/26/24 05:41 Resp 16 06/26/24 05:41 BP 103/61 06/26/24 05:41 Pulse Ox 94 06/26/24 05:41 O2 Del Method Room Air 06/26/24 05:41 BMI result Body Mass Index 28.1 Const: General: healthy appearing Nutritional Appearance: average body habitus Orientation/consciousness: oriented to person and patient oriented x3 Limitations: no limitations HEENT: Head: Yes normal to inspection Ears: external ears normal General nose exam: Normal external nose present Mouth: Normal oral and palatal mucosa present and oropharynx normal Throat: Yes posterior oropharynx normal Eyes: General: appearance normal, both eyes and all related structures Neck: Other: supple Neck: Yes normal visual inspection Chest: Chest palpation & inspection: normal inspection of the chest Resp: Auscultation: clear to auscultation bilaterally Cardio: Jugular venous distension: no JVD Rate: regular rate Rhythm: regular rhythm Heart sounds: S1 normal heart sound present and S2 normal heart sound present GI: Inspection: Yes normal to inspection Palpation (GI): Soft to palpation, nontender and No hepatosplenomegaly present Auscultation: normal bowel sounds : General: Yes no CVA tenderness Back/Spine/Pelvis: Back: no CVA tenderness Skin: General skin exam: no rashes or lesions noted Neuro: General: oriented to person and patient oriented x3 Cranial nerves: Yes CN's II-XII intact bilaterally Motor exam (neuro): 5/5 motor strength present throughout Sensory Exam: No Sensory deficit (Neuro) Extrem: General: Yes normal to inspection Psych: Appearance: grossly normal Course Reevaluation(s) Reevaluation #1: Patient medically cleared for psych. Time: 06:44 Reevaluation #2: physician observation: started 6:44am the patient is medically cleared for evaluation and now he needs time to see if he improves or needs to be admitted to psych again. Time: 06:45 Medical Decision Making Differential Diagnosis Differential Diagnoses: The differential diagnosis associated with the presentation includes (suicidal ideation, overdose, chest pain, major depression, polysubstance abuse) Admission/Observation Consideration of admission/observation: Escalation of care including admission/observation considered (upon arrival patient considered for admission) Consult Healthcare Provider Management of the patient was discussed with: Behavioral Health Provider Lab Data 06/25/24 23:43 06/25/24 23:43 Labs: Lab Results 06/25/24 06/26/24 Range/Units 23:43 01:42 WBC 17.1 H (4.8-10.8) X10*3/uL RBC 4.33 L (4.60-5.80) X10*6/uL Hgb 14.1 (14.0-18.0) g/dl Hct 40.7 L (42.0-52.0) % MCV 94.0 (80.0-98.0) fL MCH 32.6 (27.0-33.0) pg MCHC 34.6 (31.0-36.0) g/dl RDW 14.1 (11.0-16.0) % Plt Count 253 (160-400) X10*3/uL MPV 9.9 (9.4-12.4) fL Absolute Nucleated RBC 0.000 (0.0-0.012) X10*3/uL Nucleated RBC % (auto) 0.0 (0.0-0.2) /100WBC PT 12.5 (11.1-13.3) SEC INR 1.0 (0.9-1.1) Sodium 140 (135-145) mmol/L Potassium 4.9 (3.3-5.1) mmol/L Chloride 104 (96-108) mmol/L Carbon Dioxide 25 (22-29) mmol/L Anion Gap 16 (12-20) BUN 22 H (9-16) mg/dL Creatinine 1.16 (0.5-1.4) mg/dL Estim Creat Clear Calc 79.1 Estimated GFR > 60 Random Glucose 117 H (60-115) mg/dL Calcium 9.6 D (8.4-10.2) mg/dL Total Bilirubin 0.4 (0.0-1.0) mg/dL AST 45 H (5-37) U/L ALT 43 H (0-40) U/L Alkaline Phosphatase 75 (39-117) U/L Troponin I High Sens 33.9 D (<3.5-35.0) ng/L Total Protein 9.1 H (6.5-8.0) g/dL Albumin 4.2 (3.5-5.0) g/dL Salicylates < 5.0 L (15-30) mg/dL Urine Opiates Screen Not Detected (Not Detect) Ur Buprenorphine Scrn Positive H (Not Detect) ng/mL Ur Oxycodone Screen Not Detected (Not Detect) ng/mL Urine Methadone Screen Not Detected (Not Detect) ng/mL Urine Fentanyl Screen Not Detected (Not Detect) Acetaminophen < 3 (<30) mcg/mL Ur Barbiturates Screen Not Detected (Not Detect) Ur Phencyclidine Scrn Not Detected (Not Detect) Ur Amphetamines Screen Not Detected (Not Detect) U Benzodiazepines Scrn Not Detected (Not Detect) Urine Cocaine Screen POSITIVE H (Not Detect) U Marijuana (THC) Screen Not Detected (Not Detect) Ethyl Alcohol < 10 mg/dL Independent Interpretation I performed an independent interpretation of an: EKG (sinus 90, no st or twave changes) and Plain X-Ray (cxr: no infiltrate) Independent Historian Clinical information obtained from an independent historian. History obtained from or confirmed by: EMS Prescription Management I considered prescription management with: Antibiotic (no evidence of pneumonia on cxr) Chronic Conditions Patient?s care impacted by: Other (polysubstance abuse) Social Determinants Patient?s care significantly limited by Social Determinants of Health including: Low income and Alcoholism and drug addiction in family Discharge Plan Discharge Clinical Impression: Suicidal ideation, Overdose Depression Qualifiers: Depression Type: unspecified Qualified Code(s): F32.A - Depression, unspecified Patient Disposition: Still a Patient Prescriptions: No Action escitalopram oxalate 20 mg Tablet 20 mg PO DAILY 30 Days Qty: 30 0RF nicotine 21 mg/24 hr Patch 24 Hour 21 mg transdermal DAILY 30 Days Qty: 28 0RF nicotine (polacrilex) 2 mg Gum 4 mg buccal Q2H PRN (Reason: Nicotine Cravings) 30 Days Qty: 50 0RF clonidine HCl 0.1 mg Tablet 0.1 mg PO TID 30 Days Qty: 90 0RF Protocol: Hold for SBP< HOLD for SBP < : 90 clonazepam 0.5 mg Tablet 0.5 mg PO TID 7 Days Qty: 21 3RF hydroxyzine HCl 50 mg Tablet 50 mg PO BEDTIME PRN (Reason: Insomnia) 30 Days Qty: 30 0RF tamsulosin 0.4 mg Capsule 0.4 mg PO DAILY 30 Days Qty: 30 0RF acamprosate 333 mg Tablet,Delayed Release (Dr/Ec) 333 mg PO TID 30 Days Qty: 90 0RF Rx Instructions: administer with mid-day and evening meals buprenorphine-naloxone [Suboxone] 8-2 mg Film 1 film BUCCAL TID 5 Days Qty: 15 0RF Print Language: Sinhala
--- NOTE | 2024-06-26 00:46 | PC.NURSE ---
Addendum entered by Marialuisa Crabtree 06/26/24 00:49: Pt changed over by security, belonging in C6. Original Note: Per Dr. Lott, poison control not needed at this time.
[2024-06-26 00:52] LABS: Ethanol < 10 mg/dL
[2024-06-26 02:14] LABS: Amphetamine Screen Urine Not Detected (Not Detect); Barbiturates, Urine Not Detected (Not Detect); Benzodiazepines Screen Urine Not Detected (Not Detect); Buprenorphine Scr Positive (Not Detect); Cannabinoid Screen Urine Not Detected (Not Detect); Cocaine Screen Urine POSITIVE (Not Detect); Fentanyl, urine Not Detected (Not Detect); Methadone Screen, Urine Not Detected (Not Detect); Opiate Screen Urine Not Detected (Not Detect); Oxycodone Screen Urine Not Detected (Not Detect); Phencyclidine Screen Urine Not Detected (Not Detect)
[2024-06-26 02:25] LABS: Acetaminophen LAB < 3 mcg/mL (<30)
--- NOTE | 2024-06-26 03:42 | MHC.EDTECH ---
This tech took over care of patient at 0315AM,rounds and vitals completed BP is low 94/60 RN Pam was made aware, patient is resting quietly at this time,this tech is the 1:1 sitter at this time
[2024-06-26 03:44] VITALS: BP 94/60; PULSE 74; RESP 14; TEMP 36.9; O2SAT 94
[2024-06-26 03:52] LABS: Salicylate < 5.0 mg/dL (15-30)
[2024-06-26 03:58] VITALS: BP 99/61; PULSE 70; RESP 14; O2SAT 95
--- NOTE | 2024-06-26 04:09 | MHC.EDTECH ---
Patient was given a ham sandwich,and a cup of orange juice
[2024-06-26 04:36] VITALS: BP 96/63; PULSE 66; RESP 16; O2SAT 95
[2024-06-26 05:41] VITALS: BP 103/61; PULSE 68; RESP 16; O2SAT 94
--- NOTE | 2024-06-26 05:42 | MHC.EDTECH ---
Hourly rounds and vitals completed,patient is resting comfortably.
--- NOTE | 2024-06-26 06:18 | PC.NURSE ---
Med rec complete using Pt prescription bottles. Meds taken and sent to pharmacy.
--- NOTE | 2024-06-26 06:27 | PC.NURSE ---
Pt escorted to POD by security.
--- NOTE | 2024-06-26 07:10 | PC.NURSE ---
Assumed care of patient at 0645, patient appears to be sleeping, respirations even and unlabored, no apparent disress noted. Continue plan of care for CARE team eval today
[2024-06-26] MEDS: Nicotine 21 MG PATCH.TD24 TRANSDERMA (08:52)
[2024-06-26] MEDS: Escitalopram Oxalate 20 MG TABLET PO (08:52)
[2024-06-26] MEDS: Acamprosate Calcium 333 MG TABLET.DR PO (08:52)
[2024-06-26] MEDS: Buprenorphine/Naloxone 8/2 mg FILM 1 FILM BUCCAL (08:52)
[2024-06-26] MEDS: Tamsulosin HCL 0.4 MG CAPSULE PO (08:52)
[2024-06-26] MEDS: clonazePAM 0.5 MG TABLET PO (08:52)
[2024-06-26] MEDS: cloNIDine HCL 0.1 MG TABLET PO (08:52)
[2024-06-26] MEDS: Naloxone HCl Nasal TAKE HOME 4 MG SPRAY 8 MG NOSTRILALT (09:53)
[2024-06-26 10:02] VITALS: BP 142/96; PULSE 64; RESP 16; TEMP 36.6; O2SAT 97
--- NOTE | 2024-06-26 11:22 | ECG_ITS ---
Test Reason : CHEST PAIN Blood Pressure : / mmHG Vent. Rate : 090 BPM Atrial Rate : 090 BPM P-R Int : 134 ms QRS Dur : 076 ms QT Int : 354 ms P-R-T Axes : 064 -27 028 degrees QTc Int : 433 ms Normal sinus rhythm Normal ECG When compared with ECG of 25-JUN-2024 23:30, No significant change was found Referred By: Generic ED Physician Electronically Signed By:MARIANNA BOLANOS
== END 2024-06-26 10:04 | disposition home or self-care (01) ==
PROVIDERS: Emergency Provider Emergency Medicine
DX: R07.89 Other chest pain (principal); R45.851 Suicidal ideations; R79.89 Other specified abnormal findings of blood chemistry; T42.4X2A Poisoning by benzodiazepines, intentional self-harm, initial encounter; Y92.89 Other specified places as the place of occurrence of the external cause; Z79.899 Other long term (current) drug therapy; Z51.81 Encounter for therapeutic drug level monitoring
CPT/HCPCS: 36415; 71046; 80053; 80143; 80179; 80307; 84484; 85027; 85610; 93005; 99285; S9485

== ENCOUNTER 2024-06-30 07:18 | Inpatient (IN) | payer OTHER, SELFPAY ==
[2024-06-30] VITALS (7 sets, daily range): BP systolic 98–133; BP diastolic 50–75; PULSE 57–76; RESP 10–18; TEMP 36.6–36.7; O2SAT 93–98; BMI 26.3; BMI 28.5
--- NOTE | ~2024-06-30 | XR_ITS ---
EXAMINATION: XR CHEST CLINICAL INFORMATION: Chest pain COMPARISON: Chest x-ray on 07/18/2024 TECHNIQUE: Frontal view of the chest was obtained. FINDINGS: The cardiac silhouette is normal. There is mild diffuse bronchial wall thickening. There are no areas of consolidation. Scattered small calcified granulomas throughout the lungs bilaterally. There are no pleural effusions or pneumothoraces. The bones and soft tissues are unremarkable for the patient's age. XR/XR chest 1V IMPRESSION: No acute disease. Electronically signed by: Bing Cavazos MD 06/30/2024 08:15 AM EDT
--- NOTE | 2024-06-30 07:56 | ECG_ITS ---
Test Reason : ETOH Blood Pressure : / mmHG Vent. Rate : 068 BPM Atrial Rate : 068 BPM P-R Int : 140 ms QRS Dur : 082 ms QT Int : 436 ms P-R-T Axes : 000 -38 009 degrees QTc Int : 463 ms Normal sinus rhythm Left axis deviation Abnormal ECG When compared with ECG of 26-JUN-2024 00:24, T wave amplitude has decreased in Anterior leads Referred By: Miladys Rizzo Electronically Signed By:MARIANNA BOLANOS
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
[2024-06-30 08:24] LABS: MANUAL DIFF FLAG NO
[2024-06-30] MEDS: 0.9 % Sodium Chloride 1,000 ML 999 ML IV (08:28)
[2024-06-30 08:29] LABS: Basophils Absolute Auto 0.1 X10*3/uL (0.0-0.2); Basophils Percent Auto 0.8 % (0-2); Eosinophils Absolute Auto 0.6 X10*3/uL (0.0-0.4); Eosinophils Percent Auto 6.5 % (0-4); Hematocrit 37.2 % (42.0-52.0); Hemoglobin 12.9 g/dl (14.0-18.0); Imm Gran Abs Auto 0.02 X10*3/uL (0.00-0.03); Imm Gran Pct Auto 0.2 % (0.0-0.4); Lymphocytes Absolute Auto 2.4 X10*3/uL (1.2-4.9); Lymphocytes Percent Auto 26.5 % (20-40); Mean Corpuscular HGB Conc 34.7 g/dl (31.0-36.0); Mean Corpuscular Hemoglobin 32.8 pg (27.0-33.0); Mean Corpuscular Volume 94.7 fL (80.0-98.0); Mean Platelet Volume 9.9 fL (9.4-12.4); Monocytes Absolute Auto 0.8 X10*3/uL (0.1-1.2); Monocytes Percent Auto 8.8 % (2-11); Neutrophils Absolute Auto 5.1 x10*3/uL (2.0-8.3); Neutrophils Percent Auto 57.2 % (45-73); Platelet Count 222 X10*3/uL (160-400); Red Blood Count 3.93 X10*6/uL (4.60-5.80); Red Cell Distribution Width 13.7 % (11.0-16.0); White Blood Count 8.9 X10*3/uL (4.8-10.8)
[2024-06-30 08:39] LABS: Ethanol < 10 mg/dL
[2024-06-30] MEDS: PHENobarbitaL sodium 130 MG/ML IM ONCE 283 MG IM (08:40)
[2024-06-30 08:41] LABS: Alanine Aminotransferase 38 U/L (0-40); Albumin Level 3.7 g/dL (3.5-5.0); Alkaline Phosphatase 78 U/L (39-117); Anion Gap 13 (12-20); Aspartate Amino Transferase 38 U/L (5-37); Bilirubin Direct 0.3 mg/dL (0.0-0.5); Bilirubin Total 0.8 mg/dL (0.0-1.0); Blood Urea Nitrogen 20 mg/dL (9-16); Calcium 8.7 mg/dL (8.4-10.2); Carbon Dioxide 24 mmol/L (22-29); Chloride 108 mmol/L (96-108); Creatinine Clr Calc Pharmacy 99.3; Estimated Glomerular Filt Rate > 60; Glucose Random 97 mg/dL (60-115); Lipase 22 U/L (8-78); Potassium 3.8 mmol/L (3.3-5.1); Sodium 141 mmol/L (135-145); Total Protein 8.1 g/dL (6.5-8.0)
[2024-06-30 08:48] LABS: Troponin-I High Sensitivity < 2.7 ng/L (<3.5-35.0)
--- NOTE | 2024-06-30 08:48 | PC.NURSE ---
patient presented to the ED, states he drinks a pint of vodka a day, last drink was last night. patient CIWA 15, endorses he feels as if he is seeing shadows and feels as if he has bugs crawling on him. patient changed into hospital attire. patient states he is withdrawing from benzos, says he takes 3mg a day. patient is alert and oriented x3. IV place in the left AC #20. patient given a sandwich and gingerale. respirations equal and unlabored, skin dry and intact. patient bilat feet noted to be swollen, patient states he was seen the other day and was told the feet swelling was due to him walking too much patient is homeless.
[2024-06-30 08:51] LABS: B Type Natriuretic Peptide 20 pg/mL (<100)
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
[2024-06-30 11:47] LABS: Appearance Urine Clear; Color Urine Yellow; Glucose Urine UA Negative (Negative); Leukocyte Esterase Urine Negative (Negative); Nitrite Urine Negative (Negative); PH 6.5 (5.0-9.0); Urine Blood Negative (Negative); Urine Ketones 15 mg/dL (Negative); Urine Protein Negative (Neg-Trace)
[2024-06-30] MEDS: Thiamine HCL 100 MG in 0.9 % Sodium Chloride 100 ML 202 MG IV (12:13)
[2024-06-30] MEDS: Enoxaparin Sodium 40 MG/0.4 ML SYRINGE SUBCUT (12:13)
[2024-06-30] MEDS: 0.9 % Sodium Chloride 1,000 ML 100 ML IVCONT ×2 (12:17→22:47)
[2024-06-30] MEDS: Nicotine 21 MG PATCH.TD24 TRANSDERMA (12:17)
[2024-06-30] MEDS: PHENobarbitaL sodium 130 MG/ML VIAL IM Q3Hx2 212 MG IM ×2 (12:18→15:46)
[2024-06-30 12:23] LABS: Influenza A PCR NEGATIVE (Negative); Influenza B PCR NEGATIVE (Negative); Resp Syncy Virus RNA Qual PCR NEGATIVE (Negative); SARS COV2 PCR INHOUSE NEGATIVE (Negative)
[2024-06-30 12:33] LABS: Amphetamine Screen Urine Not Detected (Not Detect); Barbiturates, Urine POSITIVE (Not Detect); Benzodiazepines Screen Urine Not Detected (Not Detect); Buprenorphine Scr Positive (Not Detect); Cannabinoid Screen Urine Not Detected (Not Detect); Cocaine Screen Urine POSITIVE (Not Detect); Fentanyl, urine Not Detected (Not Detect); Methadone Screen, Urine Not Detected (Not Detect); Opiate Screen Urine Not Detected (Not Detect); Oxycodone Screen Urine Not Detected (Not Detect); Phencyclidine Screen Urine Not Detected (Not Detect)
[2024-06-30] MEDS: Folic Acid 1 MG in 0.9 % Sodium Chloride 50 ML 100.4 MG IV (13:11)
--- NOTE | 2024-06-30 13:40 | PHA.MEDREC ---
Addendum entered by Candace Vargas yanique 06/30/24 14:45: Patient had previously been filling lexapro at 5 mg daily. Upon last discharge notes it was increased to 20 mg lexapro daily. 06/25/24 Original Note: Pharmacy Consult ? Medication Reconciliation Pharmacy has completed the medication reconciliation. Spoke to patient and confirmed medication list. Verified twice with patient...he said he takes accamprosate 2 tabs bid
[2024-06-30] MEDS: PHENobarbitaL 15 MG TABLET 45 MG PO (22:46)
[2024-06-30] MEDS: Buprenorphine/Naloxone 8/2 mg FILM 1 FILM BUCCAL (22:46)
[2024-07-01] VITALS (7 sets, daily range): BP systolic 104–121; BP diastolic 52–72; PULSE 57–69; RESP 18–20; TEMP 36.7–37.1; O2SAT 94–97
[2024-07-01 06:01] LABS: MANUAL DIFF FLAG NO
[2024-07-01 06:16] LABS: Basophils Absolute Auto 0.1 X10*3/uL (0.0-0.2); Basophils Percent Auto 0.9 % (0-2); Eosinophils Absolute Auto 0.5 X10*3/uL (0.0-0.4); Eosinophils Percent Auto 7.2 % (0-4); Hematocrit 35.6 % (42.0-52.0); Hemoglobin 12.3 g/dl (14.0-18.0); Imm Gran Abs Auto 0.02 X10*3/uL (0.00-0.03); Imm Gran Pct Auto 0.3 % (0.0-0.4); Lymphocytes Absolute Auto 3.6 X10*3/uL (1.2-4.9); Lymphocytes Percent Auto 49.1 % (20-40); Mean Corpuscular HGB Conc 34.6 g/dl (31.0-36.0); Mean Corpuscular Hemoglobin 32.9 pg (27.0-33.0); Mean Corpuscular Volume 95.2 fL (80.0-98.0); Mean Platelet Volume 10.3 fL (9.4-12.4); Monocytes Absolute Auto 0.5 X10*3/uL (0.1-1.2); Monocytes Percent Auto 7.2 % (2-11); Neutrophils Absolute Auto 2.6 x10*3/uL (2.0-8.3); Neutrophils Percent Auto 35.3 % (45-73); Platelet Count 203 X10*3/uL (160-400); Red Blood Count 3.74 X10*6/uL (4.60-5.80); Red Cell Distribution Width 13.5 % (11.0-16.0); White Blood Count 7.4 X10*3/uL (4.8-10.8)
[2024-07-01 06:19] LABS: Anion Gap 8 (12-20); Blood Urea Nitrogen 17 mg/dL (9-16); Calcium 7.9 mg/dL (8.4-10.2); Carbon Dioxide 26 mmol/L (22-29); Chloride 109 mmol/L (96-108); Creatinine Clr Calc Pharmacy 114.1; Estimated Glomerular Filt Rate > 60; Glucose Random 102 mg/dL (60-115); Potassium 3.9 mmol/L (3.3-5.1); Sodium 139 mmol/L (135-145)
[2024-07-01] MEDS: Tamsulosin HCL 0.4 MG CAPSULE PO (08:07)
[2024-07-01] MEDS: PHENobarbitaL 15 MG TABLET 45 MG PO ×2 (08:07→20:35)
[2024-07-01] MEDS: Escitalopram Oxalate 20 MG TABLET PO (08:07)
[2024-07-01] MEDS: Folic Acid 1 MG in 0.9 % Sodium Chloride 50 ML 100.4 MG IV (08:07)
[2024-07-01] MEDS: Buprenorphine/Naloxone 8/2 mg FILM 1 FILM BUCCAL ×3 (08:07→20:34)
[2024-07-01] MEDS: Nicotine 21 MG PATCH.TD24 TRANSDERMA (08:08)
[2024-07-01] MEDS: 0.9 % Sodium Chloride 1,000 ML 100 ML IVCONT ×2 (08:08→20:34)
[2024-07-01] MEDS: Nicotine Polacrilex Lozenge 2 MG LOZENGE BUCCAL ×4 (08:12→20:36)
[2024-07-01] MEDS: clonazePAM 0.5 MG TABLET PO ×2 (08:12→15:49)
--- NOTE | 2024-07-01 09:30 | MHC.CM.PN ---
Pt self-care, reports he is homeless and would like to go to a assisted at discharge or to the [facility]. Pt will need assistance with transport. Pt states he has a HCP, copy requested. PCP: Dr. Erasto Siu at [facility]
[2024-07-01] MEDS: Thiamine HCL 100 MG in 0.9 % Sodium Chloride 100 ML 202 MG IV (09:42)
--- NOTE | 2024-07-01 10:24 | MHC.RECOVRN ---
AUDIT-C Brief Intervention Pt had positive screen for unhealthy alcohol use on admission, subsequently met with t/w to discuss alcohol use and recovery supports/options. Pt voices concern regarding alcohol use and is aware that drinking at unhealthy levels is known to increase risk of alcohol related health problems. Pt reports 2 pints vodka daily x 2 years. Pt also reports cocaine use, INH, 1 gram daily. Denies other substances. Pt expresses how alcohol use has impacted health, including negative impact on overall physical wellbeing as well as mental health. Pt states I'm at rock bottom. Discussed risk reduction strategies including drinking below the recommended limit. Provided pt with written resources including information on inpatient and outpatient treatment, BACILIO, harm reduction, and recovery coaching. Pt would like to continue [facility] treatment and discharge to [facility]. Pt provided with t/w contact information if questions or concerns arise. Denies other questions or concerns at this time. Pts referral sent to the [facility].
[2024-07-01] MEDS: Enoxaparin Sodium 40 MG/0.4 ML SYRINGE SUBCUT (11:59)
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
--- NOTE | 2024-07-01 14:19 | MHC.RECOVRN ---
Plan for pt to dc today. Since pt has only been admitted 1 day, pt may qualify for ATS level of care. Referral currently under review for [facility].
[2024-07-01] MEDS: Acetaminophen 325 MG TABLET 650 MG PO (15:48)
--- NOTE | 2024-07-01 16:18 | MHC.CM.PN ---
Per hospitalist, pt is medically cleared for discharge today. Per recovery nurse, pt has not been accepted to the [facility] program. Pt will have to discharge to a nursing home vs the street. This CM called the living room in [place], and they said pt could go there for the night but its on a first come first serve basis. CM offering to set up pt to go there via lyft. The living room number and address was given to the pt. Pt stating that he is having trouble walking and is asking to speak with the MD, hospitalist updated.
[2024-07-01] MEDS: hydrOXYzine HCL 50 MG TABLET PO (20:36)
[2024-07-01] MEDS: Melatonin 3 MG TABLET 6 MG PO (20:36)
[2024-07-02 03:13] VITALS: BP 100/58; PULSE 53; RESP 18; TEMP 36.7; O2SAT 98
[2024-07-02] MEDS: 0.9 % Sodium Chloride 1,000 ML 100 ML IVCONT (06:04)
[2024-07-02 07:22] VITALS: BP 116/68; PULSE 59; RESP 20; TEMP 36.3; O2SAT 97
[2024-07-02] MEDS: Folic Acid 1 MG in 0.9 % Sodium Chloride 50 ML 100.4 MG IV (09:07)
[2024-07-02] MEDS: Escitalopram Oxalate 20 MG TABLET PO (09:07)
[2024-07-02] MEDS: Thiamine HCL 100 MG in 0.9 % Sodium Chloride 100 ML 202 MG IV (09:07)
[2024-07-02] MEDS: Tamsulosin HCL 0.4 MG CAPSULE PO (09:07)
[2024-07-02] MEDS: PHENobarbitaL 15 MG TABLET 45 MG PO (09:07)
[2024-07-02] MEDS: Nicotine 21 MG PATCH.TD24 TRANSDERMA (09:07)
[2024-07-02] MEDS: clonazePAM 0.5 MG TABLET PO ×2 (09:07→14:32)
[2024-07-02] MEDS: Buprenorphine/Naloxone 8/2 mg FILM 1 FILM BUCCAL ×2 (09:07→14:28)
[2024-07-02] MEDS: Nicotine Polacrilex Lozenge 2 MG LOZENGE BUCCAL ×2 (09:15→14:28)
[2024-07-02] MEDS: Enoxaparin Sodium 40 MG/0.4 ML SYRINGE SUBCUT (09:16)
--- NOTE | 2024-07-02 10:50 | MHC.CARE ---
CARE Team speaks with Dr. Larios regarding pt being referred to CARE Team for an assessment and potential return to inpatient psychiatry.? Dr Larios stated that he told pt he was being discharged and pt expressed he had nowhere to go and grew angry and adversarial.? CARE Team shared the following information with Dr. Larios pertaining to his previous inpatient psychiatric admission and most recent CARE Team assessment. Pt was discharged from inpatient psychiatry at this facility on 06/25.? Pt advised his secondary social studies teacher (per note) he was not ready to leave and refused placement at [facility], where placement was secured by the inpatient social work team.? When pt was informed he still had to discharge and he reported he would discharge, although he didn't feel ready to discharge, as he is depressed, anxious and made vague, passive statements he was suicidal. Pt had, up until being notified of discharge, had been ?consistently? denying suicidal ideation, plan and intent. Pt had also been exhibiting a stable mood and did not complain of depressive symptoms until the day of discharge. Pt presented at and prior to his date of discharge as organized, coherent and oriented to all spheres. Thought content was relevant, appropriate and future oriented. There was no evidence of psychosis or maribel, nor were there any concerns for these symptoms prior to or during his admission. Pt was seen on 06/26 by CARE Team after an alleged suicide attempt on Benzodiazepines.? Pt?s Lab work showed no Benzodiazepines in his system according to the assessment.? Pt was offered a dual dx admission but refused, being insistent on an M5 admission.? The assessing clinician determined that pt did not meet inpatient level of care, as he appeared to be seeking a return to the inpatient unit secondary to housing due to being homeless and unsheltered. Pt became angry and irritable requesting to be discharged. Pt was provided with safety plan as well as numerous community resources and Narcan at discharge. After sharing the above information with Dr. Larios, he advised CARE Team that he would retract his order for as consult and would move ahead with the discharge.
[2024-07-02 11:12] VITALS: PULSE 80
[2024-07-02 11:24] VITALS: BP 112/70; PULSE 64; RESP 18; TEMP 36.4; O2SAT 96
--- NOTE | 2024-07-02 11:48 | P.PNIM_ITS ---
Subjective Subjective Date of Service: 07/02/24 Interval History: Did not discharge yesterday secondary to increased pain weakness and dizziness. Review of Systems Denies chest pain Denies shortness of breath Denies nausea vomiting diarrhea Admits weakness leg pain and dizziness Physical Exam 2 Vital Signs: Vital Signs: Last Vital Signs Temp 97.6 F 07/02/24 11:24 Pulse 64 07/02/24 11:24 Resp 18 07/02/24 11:24 BP 112/70 07/02/24 11:24 Pulse Ox 96 07/02/24 11:24 O2 Del Method Room Air 07/02/24 11:24 BMI result Body Mass Index 28.5 Const: Other: Awake alert no acute distress Resp: Other: Clear to auscultation bilaterally no rales rhonchi or wheezes Cardio: Other: No S4; positive S1-S2; no S3 murmurs rubs or gallops GI: Other: Soft nontender nondistended normoactive bowel sounds Extrem: Other: No edema bilaterally Objective Data Active Medications Acetaminophen (Acetaminophen 325 Mg Tablet) 650 mg PO Q6H PRN PRN Reason: Pain, Mild (Pain Scale 1-3), fever or headache Last Admin: 07/01/24 15:48 Dose: 650 mg Documented By: HOLA Buprenorphine/Naloxone (Buprenorphine/Naloxone 8/2 Mg Film) 1 film BUCCAL TID [facility] Last Admin: 07/02/24 09:07 Dose: 1 film Documented By: VARGHESE Calcium Carbonate (Calcium Carbonate 750 Mg Tab.Chew) 750 mg PO Q4H PRN PRN Reason: Heartburn Clonazepam (Clonazepam 0.5 Mg Tablet) 0.5 mg PO TID PRN PRN Reason: anxiety Last Admin: 07/02/24 09:07 Dose: 0.5 mg Documented By: VARGHESE Enoxaparin Sodium (Enoxaparin Sodium 40 Mg/0.4 Ml Syringe) 40 mg SUBCUT Q24H [facility] Last Admin: 07/02/24 09:16 Dose: 40 mg Documented By: VARGHESE Escitalopram Oxalate (Escitalopram Oxalate 20 Mg Tablet) 20 mg PO DAILY [facility] Last Admin: 07/02/24 09:07 Dose: 20 mg Documented By: VARGHESE Hydroxyzine HCl (Hydroxyzine Hcl 50 Mg Tablet) 50 mg PO BEDTIME PRN PRN Reason: Insomnia Last Admin: 07/01/24 20:36 Dose: 50 mg Documented By: MAUREEN Thiamine HCl 100 mg/ Sodium (Chloride) 101 mls @ 202 mls/hr IV DAILY [facility] Last Infusion: 07/02/24 09:56 Dose: Infused Documented By: VARGHESE Folic Acid 1 mg/ Sodium (Chloride) 50.2 mls @ 100.4 mls/hr IV DAILY [facility] Last Infusion: 07/02/24 09:56 Dose: Infused Documented By: VARGHESE Magnesium Hydroxide (Milk Of Magnesia 30 Ml Oral.Susp) 30 ml PO DAILY PRN PRN Reason: Constipation Melatonin (Melatonin 3 Mg Tablet) 6 mg PO BEDTIME PRN PRN Reason: Insomnia Last Admin: 07/01/24 20:36 Dose: 6 mg Documented By: MAUREEN Nicotine (Nicotine 21 Mg Patch.Td24) 21 mg TRANSDERMA DAILY [facility] Last Admin: 07/02/24 09:07 Dose: 21 mg Documented By: VARGHESE Nicotine Polacrilex (Nicotine Polacrilex Lozenge 2 Mg Lozenge) 2 mg BUCCAL Q2H PRN PRN Reason: Nicotine Cravings Last Admin: 07/02/24 09:15 Dose: 2 mg Documented By: VARGHESE Pharmacy Consult (Consult Rx Etoh Phenob Im/Po) 1 each MISCELLANE ONCE PRN; Protocol PRN Reason: Consult order Phenobarbital (Phenobarbital 15 Mg Tablet) 15 mg PO BID [facility] Stop: 07/04/24 09:01 Phenobarbital (Phenobarbital 15 Mg Tablet) 15 mg PO DAILY [facility] Stop: 07/06/24 09:01 Sodium Chloride (0.9 % Sodium Chloride Flush 3 Ml Syringe) 3 ml IVFLUSH QSHIFT [facility] Last Admin: 07/02/24 07:51 Dose: Not Given Documented By: VARGHESE Non-Admin Reason: IV Running Tamsulosin HCl (Tamsulosin Hcl 0.4 Mg Capsule) 0.4 mg PO DAILY [facility] Last Admin: 07/02/24 09:07 Dose: 0.4 mg Documented By: VARGHESE Labs 07/01/24 05:49 07/01/24 05:49 Assessment and Plan (1) Alcohol withdrawal: Status: Acute (2) Benzodiazepine withdrawal: Status: Acute (3) PTSD (post-traumatic stress disorder): Status: Acute Plan 54 year old male with alcohol use disorder, OUD on suboxone, and crack cocaine use disorder along with anxiety/ptsd admitted for etoh and benzo withdrawal 1.Acute alcohol withdrawal -Monitor on CIWA, CIWA on admission 18... Now 0 -phenobarbital per protocol -IV thiamine, folic acid -PT consult for dizziness and weakness 2.Acute benzo withdrawal -phenobarb as above -consider resuming klonipin 0.5mg but prn 3.OUD/crack cocaine use/PTSD -recent discharge from inpatient Psychiatry 06/25 -reconsult -addiction med consult 4.Nicotine dependence -patches/lozenges NRT, cessation advised DVT prophylaxis- lovenox full code pt requires inpt stay at least 2 midnights for management of alcohol and benzo withdrawal on phenobarb protocol and desiring detox/rehab Quality Stroke Does the patient have a stroke diagnosis?: No VTE Prior VTE?: No VTE Risk Level:: Medical - moderate - high VTE Device Contraindication: Treatment Not Indicated VTE Drug Contraindication: N/A - Med Ordered
--- NOTE | 2024-07-02 13:21 | MHC.CM.PN ---
Addendum entered by Lina Quinn 07/02/24 14:23: Per hospitalist, CARE team to see pt to assist with discharge dispo. Original Note: PT evaluated pt today and recommended STR. This CM placed STR referral to [facility] and [facility]. [facility] has offered pt a bed and can pursue insurance auth. This CM discussed discharge plan of going to [facility] with pt and pt states theres nothing wrong with him physically, he can walk and he'd rather sleep under a bridge than go to [facility]. Pt states [facility] is too far. This CM explained that it is the only option for him for rehab. Hospitalist updated.
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
--- NOTE | 2024-07-02 17:24 | PC.NURSE ---
Pt agitated with staff becoming argumentative and attempting to provoke an argument early afternoon. Was found to be recording staff with phone, security on unit to educate patient on policy pt continues to record staff. Care team on unit to see patient cleared per care team and medicine for discharge. Pt provided with multiple options for discharge plan refusing all options offered. Pt able to ambulate without difficulty with steady gait pt states I don't have any problems walking. Discharge paperwork provided to patient at time of discharge refusing to sign. Resource packet placed in discharge folder for outpatient follow up. Provided with bus vouchers upon discharge for transportation. Pt escorted off unit with security refusing wheelchair ambulated off unit with steady gait.
== END 2024-07-02 17:39 | disposition home or self-care (01) | DRG 773 ==
LOC: HO.ED 10:46 → HO.EDOVER 11:35 → HO.IMC 19:39
PROVIDERS: Admitting Provider Physician Assistant; Emergency Provider Emergency Medicine; Visit Provider Hospitalist
DX: F19.231 Other psychoactive substance dependence with withdrawal delirium (principal); F11.20 Opioid dependence, uncomplicated; F10.231 Alcohol dependence with withdrawal delirium; T42.4X6A Underdosing of benzodiazepines, initial encounter; F17.210 Nicotine dependence, cigarettes, uncomplicated; F43.10 Post-traumatic stress disorder, unspecified; F41.9 Anxiety disorder, unspecified; Z59.02 Unsheltered homelessness; Z71.6 Tobacco abuse counseling; Z20.822 Contact with and (suspected) exposure to COVID-19; Z79.899 Other long term (current) drug therapy
CPT/HCPCS: 0241U; 36415; 71045; 80048; 80076; 80307; 81003; 83690; 83880; 84484; 85025; 93005; 97162; 99285; J1650; J2560; J3411; S9485

== ENCOUNTER → 2024-06-30 11:30 | Outpatient (BNV) | payer OTHER, SELFPAY | PROVIDERS: Admitting Provider Physician Assistant; Emergency Provider Emergency Medicine; Visit Provider Physician Assistant | DX: F10.939 Alcohol use, unspecified with withdrawal, unspecified (principal); F13.939 Sedative, hypnotic or anxiolytic use, unspecified with withdrawal, unspecified; F43.10 Post-traumatic stress disorder, unspecified | CPT/HCPCS: 99223; 99233; 99239; 99499 ==

== ENCOUNTER 2024-08-25 22:31 | Emergency (ER) | payer OTHER, SELFPAY ==
[2024-08-25 22:35] VITALS: BP 125/80; PULSE 103; RESP 18; TEMP 36.8; O2SAT 97; BMI 29.5
[2024-08-25 22:50] LABS: MANUAL DIFF FLAG NO
[2024-08-25 22:52] LABS: Basophils Absolute Auto 0.1 X10*3/uL (0.0-0.2); Basophils Percent Auto 0.8 % (0-2); Eosinophils Absolute Auto 0.5 X10*3/uL (0.0-0.4); Eosinophils Percent Auto 3.8 % (0-4); Hematocrit 38.2 % (42.0-52.0); Hemoglobin 13.5 g/dl (14.0-18.0); Imm Gran Abs Auto 0.05 X10*3/uL (0.00-0.03); Imm Gran Pct Auto 0.4 % (0.0-0.4); Lymphocytes Absolute Auto 3.3 X10*3/uL (1.2-4.9); Lymphocytes Percent Auto 25.3 % (20-40); Mean Corpuscular HGB Conc 35.3 g/dl (31.0-36.0); Mean Corpuscular Volume 93.4 fL (80.0-98.0); Mean Platelet Volume 9.5 fL (9.4-12.4); Monocytes Absolute Auto 1.1 X10*3/uL (0.1-1.2); Monocytes Percent Auto 8.3 % (2-11); Neutrophils Percent Auto 61.4 % (45-73); Platelet Count 258 X10*3/uL (160-400); Red Blood Count 4.09 X10*6/uL (4.60-5.80); Red Cell Distribution Width 13.2 % (11.0-16.0); White Blood Count 13.1 X10*3/uL (4.8-10.8)
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
--- NOTE | 2024-08-25 23:06 | PC.NURSE ---
preliminary count patient has #26 clonazepam in a blister pack will inventory when forma arrive.
[2024-08-25 23:11] LABS: Alanine Aminotransferase 37 U/L (0-40); Albumin Level 4.3 g/dL (3.5-5.0); Alkaline Phosphatase 83 U/L (39-117); Anion Gap 11 (12-20); Aspartate Amino Transferase 44 U/L (5-37); Bilirubin Total 0.6 mg/dL (0.0-1.0); Blood Urea Nitrogen 16 mg/dL (9-16); Carbon Dioxide 26 mmol/L (22-29); Chloride 104 mmol/L (96-108); Estimated Glomerular Filt Rate > 60; Ethanol < 10 mg/dL; Glucose Random 84 mg/dL (60-115); Potassium 4.9 mmol/L (3.3-5.1); Sodium 136 mmol/L (135-145); Total Protein 8.9 g/dL (6.5-8.0)
--- NOTE | 2024-08-25 23:41 | ED_ITS ---
HPI - General Adult General Chief complaint: Psychiatric Symptoms Stated complaint: anxiety/depression Time Seen by Provider: 08/25/24 23:30 Source: patient Mode of arrival: ambulatory Limitations: no limitations History of Present Illness ED Provider: doug MCINTYRE narrative: Patient's history of PTSD, major depression substance abuse was in [facility] program released yesterday homeless now complaining of increased depression with suicidal feeling with a plan to overdose on pills with history of same in the past Related Data Home Medications ?Medication ?Instructions ?Recorded ?Confirmed clonazepam 1 mg tablet 1 mg PO TID 08/25/24 08/25/24 melatonin 3 mg tablet 3 mg PO BEDTIME 08/25/24 08/25/24 tamsulosin 0.4 mg capsule 0.4 mg PO BEDTIME 08/25/24 08/25/24 Previous Rx's ?Medication ?Instructions ?Recorded escitalopram oxalate 20 mg tablet 20 mg PO DAILY 30 days #30 tabs 06/24/24 buprenorphine 8 mg-naloxone 2 mg 1 film buccal TID 5 days #15 ea 06/25/24 sublingual film (Suboxone) Allergies Allergy/AdvReac Type Severity Reaction Status Date / Time No Known Allergies Allergy Verified 08/25/24 22:38 Review of Systems 2 Review of Systems: Yes all other systems are reviewed and are negative PMFSH Past Medical History Medical History Depression Social History Social History Household Members: None Household Members Other:: Homeless Housing: Other Housing Other:: car Do you presently have visiting nurse or other home services: No Alcohol intake: current Alcohol intake frequency: 3 or more drinks per day Alcohol type: hard liquor Patient Tobacco Use Status: Current everyday Tobacco user Tobacco use type: Cigarette Cigarettes Per Day: 40 Years Smoked: 40 e-Cigarette/Vaping Use: Never Used Second Hand Smoke Exposure: Yes Substance Use Type: Prescription Drugs Advance Directives: No Advance Directives Information Provided: No service: No Sexual orientation: Straight/Heterosexual Physical Exam ED Vital Signs: Vital Signs - 24 hr 08/25/24 22:35 Temperature 98.2 F Pulse Rate 103 H Respiratory Rate 18 Blood Pressure 125/80 Pulse Oximetry 97 Oxygen Delivery Method Room Air BMI result Body Mass Index 29.5 Appearance: Alert. Oriented X3. No acute distress. Eyes: PERRLA, No Nystagmus ENT: Pharynx normal. Oral Mucosa moist Neck: Normal inspection. Neck supple. CVS: Normal heart rate and rhythm. Pulses normal. Respiratory: No respiratory distress. Equal air entry bilateral, no wheezing/rales/rhonchi Abdomen: Soft and nontender. Bowel sounds are present, no mass palpable, no CVA tenderness Skin: Skin warm and dry. Normal skin color. Normal skin turgor. Extremities: No lower extremity edema. No calf tenderness Psych: Depressed with SI ideation no HI no hallucination or delusion Neuro: Oriented X 3. No motor deficit. No sensory deficit.No cerebellar signs , cranial nerves II-XII intact Medical Decision Making Medical Decision Making MDM Narrative: Patient with PTSD, depression with substance abuse feels suicidal will get care team involved Lab Data MDM Lab Attestation statement: I reviewed the patient's lab results. 08/25/24 22:45 08/25/24 22:44 Labs: Lab Results 08/25/24 08/25/24 08/25/24 Range/Units 00:00 22:44 22:45 WBC 13.1 H (4.8-10.8) X10*3/uL RBC 4.09 L (4.60-5.80) X10*6/uL Hgb 13.5 L (14.0-18.0) g/dl Hct 38.2 L (42.0-52.0) % MCV 93.4 (80.0-98.0) fL MCH 33.0 (27.0-33.0) pg MCHC 35.3 (31.0-36.0) g/dl RDW 13.2 (11.0-16.0) % Plt Count 258 D (160-400) X10*3/uL MPV 9.5 (9.4-12.4) fL Immature Gran % (Auto) 0.4 (0.0-0.4) % Neut % (Auto) 61.4 (45-73) % Lymph % (Auto) 25.3 (20-40) % [place] % (Auto) 8.3 (2-11) % Eos % (Auto) 3.8 (0-4) % Baso % (Auto) 0.8 (0-2) % Lymph # (Auto) 3.3 (1.2-4.9) X10*3/uL [place] # (Auto) 1.1 (0.1-1.2) X10*3/uL Eos # (Auto) 0.5 H (0.0-0.4) X10*3/uL Baso # (Auto) 0.1 (0.0-0.2) X10*3/uL Abs Immat Gran (auto) 0.05 H (0.00-0.03) X10*3/uL Absolute Neuts (auto) 8.0 (2.0-8.3) x10*3/uL Absolute Nucleated RBC 0.000 (0.0-0.012) X10*3/uL Nucleated RBC % (auto) 0.0 (0.0-0.2) /100WBC Sodium 136 (135-145) mmol/L Potassium 4.9 D (3.3-5.1) mmol/L Chloride 104 (96-108) mmol/L Carbon Dioxide 26 (22-29) mmol/L Anion Gap 11 L (12-20) BUN 16 (9-16) mg/dL Creatinine 1.16 (0.5-1.4) mg/dL Estim Creat Clear Calc 81.0 Estimated GFR > 60 Random Glucose 84 (60-115) mg/dL Calcium 9.6 D (8.4-10.2) mg/dL Total Bilirubin 0.6 (0.0-1.0) mg/dL AST 44 H (5-37) U/L ALT 37 (0-40) U/L Alkaline Phosphatase 83 (39-117) U/L Total Protein 8.9 H (6.5-8.0) g/dL Albumin 4.3 (3.5-5.0) g/dL Urine Color Yellow Urine Appearance Clear Urine pH 6.0 (5.0-9.0) Ur Specific [place] <= 1.005 (1.005-1.025) Urine Protein Negative (Neg-Trace) mg/dL Urine Glucose (UA) Negative (Negative) mg/dL Urine Ketones Negative (Negative) mg/dL Urine Blood Negative (Negative) Urine Nitrite Negative (Negative) Ur Leukocyte Esterase Negative (Negative) Urine RBC 0-2 (0-2) /HPF Urine WBC 0-5 (0-5) /HPF Ur Squamous Epith Cells 0-2 (0-2) /HPF Urine Bacteria None Seen (None Seen) Hyaline Casts 0-2 (0-2) /LPF Urine Opiates Screen (Not Detect) Ur Buprenorphine Scrn (Not Detect) ng/mL Ur Oxycodone Screen (Not Detect) ng/mL Urine Methadone Screen (Not Detect) ng/mL Urine Fentanyl Screen (Not Detect) Ur Barbiturates Screen (Not Detect) Ur Phencyclidine Scrn (Not Detect) Ur Amphetamines Screen (Not Detect) U Benzodiazepines Scrn (Not Detect) Urine Cocaine Screen (Not Detect) U Marijuana (THC) Screen (Not Detect) Ethyl Alcohol < 10 mg/dL 08/25/24 Range/Units 23:42 WBC (4.8-10.8) X10*3/uL RBC (4.60-5.80) X10*6/uL Hgb (14.0-18.0) g/dl Hct (42.0-52.0) % MCV (80.0-98.0) fL MCH (27.0-33.0) pg MCHC (31.0-36.0) g/dl RDW (11.0-16.0) % Plt Count (160-400) X10*3/uL MPV (9.4-12.4) fL Immature Gran % (Auto) (0.0-0.4) % Neut % (Auto) (45-73) % Lymph % (Auto) (20-40) % [place] % (Auto) (2-11) % Eos % (Auto) (0-4) % Baso % (Auto) (0-2) % Lymph # (Auto) (1.2-4.9) X10*3/uL [place] # (Auto) (0.1-1.2) X10*3/uL Eos # (Auto) (0.0-0.4) X10*3/uL Baso # (Auto) (0.0-0.2) X10*3/uL Abs Immat Gran (auto) (0.00-0.03) X10*3/uL Absolute Neuts (auto) (2.0-8.3) x10*3/uL Absolute Nucleated RBC (0.0-0.012) X10*3/uL Nucleated RBC % (auto) (0.0-0.2) /100WBC Sodium (135-145) mmol/L Potassium (3.3-5.1) mmol/L Chloride (96-108) mmol/L Carbon Dioxide (22-29) mmol/L Anion Gap (12-20) BUN (9-16) mg/dL Creatinine (0.5-1.4) mg/dL Estim Creat Clear Calc Estimated GFR Random Glucose (60-115) mg/dL Calcium (8.4-10.2) mg/dL Total Bilirubin (0.0-1.0) mg/dL AST (5-37) U/L ALT (0-40) U/L Alkaline Phosphatase (39-117) U/L Total Protein (6.5-8.0) g/dL Albumin (3.5-5.0) g/dL Urine Color Urine Appearance Urine pH (5.0-9.0) Ur Specific [place] (1.005-1.025) Urine Protein (Neg-Trace) mg/dL Urine Glucose (UA) (Negative) mg/dL Urine Ketones (Negative) mg/dL Urine Blood (Negative) Urine Nitrite (Negative) Ur Leukocyte Esterase (Negative) Urine RBC (0-2) /HPF Urine WBC (0-5) /HPF Ur Squamous Epith Cells (0-2) /HPF Urine Bacteria (None Seen) Hyaline Casts (0-2) /LPF Urine Opiates Screen Not Detected (Not Detect) Ur Buprenorphine Scrn Positive H (Not Detect) ng/mL Ur Oxycodone Screen Not Detected (Not Detect) ng/mL Urine Methadone Screen Not Detected (Not Detect) ng/mL Urine Fentanyl Screen Not Detected (Not Detect) Ur Barbiturates Screen Not Detected (Not Detect) Ur Phencyclidine Scrn Not Detected (Not Detect) Ur Amphetamines Screen Not Detected (Not Detect) U Benzodiazepines Scrn Not Detected (Not Detect) Urine Cocaine Screen POSITIVE H (Not Detect) U Marijuana (THC) Screen Not Detected (Not Detect) Ethyl Alcohol mg/dL Discharge Plan Discharge Clinical Impression: MDD (major depressive disorder), recurrent episode, PTSD (post-traumatic stress disorder), Suicidal ideation, Opioid use disorder Patient Disposition: Still a Patient Prescriptions: No Action escitalopram oxalate 20 mg Tablet 20 mg PO DAILY 30 Days Qty: 30 0RF buprenorphine-naloxone [Suboxone] 8-2 mg Film 1 film BUCCAL TID 5 Days Qty: 15 0RF melatonin 3 mg tablet 3 mg PO BEDTIME tamsulosin 0.4 mg capsule 0.4 mg PO BEDTIME clonazepam 1 mg tablet 1 mg PO TID Interventions: [place]-Suicide Risk Severity Scale Last Done: 08/26/24 00:17 Print Language: Wallisian
[2024-08-26 00:02] LABS: Calcium 9.6 mg/dL (8.4-10.2)
[2024-08-26 00:09] LABS: Amphetamine Screen Urine Not Detected (Not Detect); Barbiturates, Urine Not Detected (Not Detect); Benzodiazepines Screen Urine Not Detected (Not Detect); Buprenorphine Scr Positive (Not Detect); Cannabinoid Screen Urine Not Detected (Not Detect); Cocaine Screen Urine POSITIVE (Not Detect); Fentanyl, urine Not Detected (Not Detect); Methadone Screen, Urine Not Detected (Not Detect); Opiate Screen Urine Not Detected (Not Detect); Oxycodone Screen Urine Not Detected (Not Detect); Phencyclidine Screen Urine Not Detected (Not Detect)
[2024-08-26 00:14] LABS: Appearance Urine Clear; Color Urine Yellow; Glucose Urine UA Negative (Negative); Leukocyte Esterase Urine Negative (Negative); Nitrite Urine Negative (Negative); Specific Gravity - Urine <= 1.005 (1.005-1.025); Urine Blood Negative (Negative); Urine Ketones Negative (Negative); Urine Protein Negative (Neg-Trace)
[2024-08-26 00:19] LABS: Bacteria Urine None Seen (None Seen); Hyaline Casts Urine 0-2 /LPF (0-2); RBC Urine 0-2 /HPF (0-2); Squamous Epithelial Cell Urine 0-2 /HPF (0-2); WBC Urine 0-5 /HPF (0-5)
[2024-08-26] MEDS: Melatonin 3 MG TABLET PO ×2 (01:19→19:56)
[2024-08-26] MEDS: clonazePAM 1 MG TABLET PO ×4 (01:19→19:56)
[2024-08-26] MEDS: Buprenorphine/Naloxone 8/2 mg FILM 1 FILM BUCCAL ×4 (01:26→19:56)
[2024-08-26] MEDS: Tamsulosin HCL 0.4 MG CAPSULE PO (01:26)
[2024-08-26 05:11] VITALS: BP 94/55; PULSE 74; RESP 17; TEMP 36.4; O2SAT 96
[2024-08-26] MEDS: Escitalopram Oxalate 20 MG TABLET PO (08:11)
--- NOTE | 2024-08-26 12:08 | MHC.CARE ---
Pt seen by CARE team amd referral to [facility]/respite @ [facility] and [facility] was done. N reports discharges fell though so no beds available currently. [facility] reports they do have male bed, referral was activated and is under review currently. CARE team to follow up as needed.
--- NOTE | 2024-08-26 15:43 | MHC.CARE ---
Clinician spoke with Andressa at [facility], they report the male discharge that was planned fell though, however patient has been formally accepted to admit to [facility] tomorrow AM. CARE to follow up in the AM and arrange transportation when ETA is obtained.
--- NOTE | 2024-08-26 15:53 | MHC.CARE ---
Patient does have current medications on his person in ED, however he was given Suboxone while boarding in ED. ED provider declined to provide this script at discharge. Clinician reached out ot Michelle Cevallos and she will do the script for Suboxone, [facility] [place] 2[facility] reports script can be sent to [place] [address], [place] [address] . Michelle was notified and she confirmed the script was sent. Clinician spoke with Andressa at [facility] [place] for follow up. She? reported the male discharge that was planned for today fell though, however patient has been formally accepted to admit to [facility] tomorrow AM. CARE team to follow up in the AM and arrange transportation when ETA is obtained. Medications are all set !!!
[2024-08-26] MEDS: Nicotine Polacrilex 2 MG GUM BUCCAL (19:55)
[2024-08-26 19:56] VITALS: BP 110/65; PULSE 65; RESP 17; TEMP 36.6; O2SAT 96
[2024-08-27 06:00] VITALS: BP 95/60; PULSE 60; RESP 16; TEMP 36.8; O2SAT 97
--- NOTE | 2024-08-27 06:19 | PC.NURSE ---
Patient slept through the night, no distress observed/reported, no behavior and safety concerns, disposition per care team is respite bed search, VSS, meds and meals compliant, will continue to monitor
--- NOTE | 2024-08-27 07:05 | PC.NURSE ---
Assumed care of patient at 0645, patient appears to be sleeping, respirations even and unlabored, no apparent distress noted. Continue plan of care for respite today
[2024-08-27] MEDS: Buprenorphine/Naloxone 8/2 mg FILM 1 FILM BUCCAL (08:00)
[2024-08-27] MEDS: Tamsulosin HCL 0.4 MG CAPSULE PO (08:00)
[2024-08-27] MEDS: Escitalopram Oxalate 20 MG TABLET PO (08:00)
[2024-08-27] MEDS: clonazePAM 1 MG TABLET PO (08:00)
[2024-08-27] MEDS: Acetaminophen 325 MG TABLET 650 MG PO (08:06)
[2024-08-27] MEDS: Nicotine Polacrilex 2 MG GUM BUCCAL (08:06)
--- NOTE | 2024-08-27 10:46 | MHC.CARE ---
Pt accepted to [facility] for today 08/27/2024.
[2024-08-27 10:52] VITALS: BP 135/73; PULSE 64; RESP 14; TEMP 36.3; O2SAT 97
== END 2024-08-27 10:53 | disposition home or self-care (01) ==
PROVIDERS: Internal Medicine; Emergency Provider Emergency Medicine Emergency Medical Services
DX: F33.9 Major depressive disorder, recurrent, unspecified (principal); F43.10 Post-traumatic stress disorder, unspecified; R45.851 Suicidal ideations; F11.20 Opioid dependence, uncomplicated; F17.210 Nicotine dependence, cigarettes, uncomplicated; Z59.00 Homelessness unspecified; Z79.899 Other long term (current) drug therapy
CPT/HCPCS: 36415; 80053; 80307; 81001; 85025; 99285; S9485